=== PATIENT | female | born 1960 | race Caucasian/White ===

== ENCOUNTER 2016-05-25 11:51 | Outpatient (CLI) | payer OTHER | END 2016-05-25 11:52 | disposition home or self-care (01) | DX: E03.9 Hypothyroidism, unspecified (principal) ==

== ENCOUNTER 2016-06-01 14:46 | Outpatient (CLI) | payer OTHER | END 2016-06-01 14:47 | disposition home or self-care (01) | DX: Z12.31 Encounter for screening mammogram for malignant neoplasm of breast (principal) ==

== ENCOUNTER 2017-01-05 13:05 | Emergency (ER) | payer OTHER ==
[2017-01-05 13:13] VITALS: BP 170/122
--- NOTE | 2017-01-05 13:42 | ED Physician Documentation ---
PD HPI SKIN - Stated complaint Stated Complaint: SUN BURN - Chief complaint Chief Complaint: Wound - History obtained from History obtained from: Patient - History of Present Illness Timing - onset: Other (She has a painful peeling sunburn mostly on her front side where she does not usually get sun exposure and it is not healing well.) Review of Systems Constitutional: reports: Reviewed and negative Nose: reports: Reviewed and negative Cardiac: reports: Reviewed and negative PD PAST MEDICAL HISTORY - Past Medical History Respiratory: Asthma Neuro: Headache/migraine, Other Musculoskeletal: Osteoarthritis, Fibromyalgia, Rheumatoid arthritis, Chronic back pain - Past Surgical History Ortho: Rotator cuff repair /MOLDER INFLATED BALL: Hysterectomy - Present Medications Home Medications: Ambulatory Orders Medication Instructions Recorded Confirmed Adalimumab [Humira] 10 mg PO Q14D 11/22/15 11/22/15 Cephalexin [Keflex] 500 mg PO QID #30 capsule 01/05/17 - Allergies Allergies/Adverse Reactions: Allergies Allergy/AdvReac Type Severity Reaction Status Date / Time prednisone Allergy Itching Verified 01/05/17 13:13 - Social History Does the pt smoke?: No Smoking Status: Never smoker Does the pt drink ETOH?: No Does the pt have substance abuse?: No PD ED PE NORMAL - Vitals Vital signs reviewed: Yes - General General: Alert and oriented X 3, No acute distress - Derm Derm: Other (noe Rabago RN. She has widespread sunburn on the anterior part of her thighs, anterior abdominal wall and upper breasts. The abdominal wall and breasts are weeping with some cellulitis especially of the abdominal wall.) - Neuro Neuro: Alert and oriented X 3, Normal speech - Psych Psych: Normal mood, Normal affect Results - Vitals Vitals: Vital Signs - 24 hr 01/05/17 13:09 Temperature 36.3 C L Heart Rate 69 Respiratory 16 Rate Blood Pressure 170/122 H O2 Saturation 98 Oxygen O2 Source Room air PD MEDICAL DECISION MAKING - ED course ED course: Looks like she has superinfected sunburn, however she has been using Neosporin religiously, so that may be causing a dermatitis as well. She was advised to switch to Vaseline and we will start her on some antibiotics. Departure - Departure Disposition: 01 Home, Self Care Clinical Impression: Sunburn of second degree Condition: Good Record reviewed to determine appropriate education?: Yes Instructions: ED Burn Wound Check FU Infec Prescriptions: Cephalexin [Keflex] 500 mg PO QID #30 capsule Comments: As discussed, switch From Neosporin to Vaseline or other greasy agent such as bacitracin ointment. Your blood pressure was elevated today on check into the emergency department. This does not mean that you have hypertension, it is a common phenomenon to come to the emergency department and have elevated blood pressure. I recommend that she see your primary care physician within the week to have it rechecked when you are feeling better.
== END 2017-01-05 14:06 | disposition home or self-care (01) ==
LOC: ED 13:05
DX: L55.1 Sunburn of second degree (principal); R03.0 Elevated blood-pressure reading, without diagnosis of hypertension
CPT/HCPCS: 99283

== ENCOUNTER 2017-06-27 08:00 | Outpatient (CLI) | payer OTHER ==
[2017-06-27 13:44] LABS: BASOPHILS % (AUTO) 0.4 %; EOSINOPHILS # (AUTO) 0.2 10^3/uL (0.0-0.7); EOSINOPHILS % (AUTO) 2.5 %; HGB - HEMOGLOBIN 12.9 g/dL (12.0-16.0); LYMPHOCYTES # (AUTO) 1.6 10^3/uL (1.5-3.5); LYMPHOCYTES % (AUTO) 21.8 %; MEAN CORPUSCULAR HEMOGLOBIN 26.4 pg (27.0-31.0); MEAN CORPUSCULAR HGB CONC 33.3 g/dL (32.0-36.0); MEAN CORPUSCULAR VOLUME 79.1 fL (81.0-99.0); MEAN PLATELET VOLUME 8.8 fL (7.9-10.8); MONOCYTES # (AUTO) 0.4 10^3/uL (0.0-1.0); MONOCYTES % (AUTO) 4.9 %; NEUTROPHILS # (AUTO) 5.3 10^3/uL (1.5-6.6); NEUTROPHILS % (AUTO) 70.4 %; PLT - PLATELET COUNT 198 10^3/uL (130-450); RED BLOOD COUNT 4.88 10^6/uL (4.20-5.40); RED CELL DISTRIBUTION WIDTH 16.5 % (12.0-15.0); WHITE BLOOD COUNT 7.5 x10^3/uL (4.8-10.8)
[2017-06-27 14:04] LABS: ALBUMIN 3.9 g/dL (3.2-5.5); ALBUMIN/GLOBULIN RATIO 1.1 (1.0-2.2); ALKALINE PHOSPHATASE 72 IU/L (42-121); ALT ALANINE AMINOTRANSFERASE 18 IU/L (10-60); AST ASPARTATE AMINOTRANSFERASE 18 IU/L (10-42); BILIRUBIN,TOTAL 0.6 mg/dL (0.2-1.0); BUN - BLOOD UREA NITROGEN 22 mg/dL (6-20); CALCIUM 9.2 mg/dL (8.5-10.3); CARBON DIOXIDE - CO2 28 mmol/L (21-32); CHLORIDE 98 mmol/L (101-111); CHOLESTEROL 166 mg/dL; CREATININE 0.7 mg/dL (0.4-1.0); GFR - MDRD 86 (>89); GLUCOSE 93 mg/dL (70-100); HDL CHOLESTEROL 56 mg/dL; LDL CHOLESTEROL,CALCULATED 93 mg/dL; LDL/HDL RATIO 1.7 (<4.4); SODIUM 138 mmol/L (135-145); TOTAL PROTEIN 7.6 g/dL (6.7-8.2); VLDL CHOLESTEROL 17 mg/dL
[2017-06-27 15:08] LABS: THYROID STIMULATING HORMONE 12.06 uIU/mL (0.34-5.60)
[2017-06-27 15:50] LABS: FREE T4 (FREE THYROXINE) 0.82 ng/dL (0.58-1.64)
== END 2017-06-27 08:01 | disposition home or self-care (01) ==
LOC: LAB.WCP 08:00
PROVIDERS: ATTEND Physician Assistant Medical
DX: Z00.00 Encounter for general adult medical examination without abnormal findings (principal)
CPT/HCPCS: 36415; 80053; 80061; 83721; 84439; 84443; 85025

== ENCOUNTER 2017-12-11 11:18 | Outpatient (CLI) | payer OTHER, MEDICARE ==
[2017-12-11] MEDS ORDERED: IOPAMIDOL-300 100 ML VIAL ONE (11:34)
[2017-12-11] MEDS ORDERED: IOPAMIDOL-300 50 ML VIAL ONE (11:34)
[2017-12-11 11:57] LABS: BASOPHILS % (AUTO) 0.4 %; EOSINOPHILS # (AUTO) 0.1 10^3/uL (0.0-0.7); EOSINOPHILS % (AUTO) 1.3 %; LYMPHOCYTES # (AUTO) 0.9 10^3/uL (1.5-3.5); LYMPHOCYTES % (AUTO) 9.4 %; MEAN CORPUSCULAR HEMOGLOBIN 26.5 pg (27.0-31.0); MEAN CORPUSCULAR HGB CONC 33.3 g/dL (32.0-36.0); MEAN CORPUSCULAR VOLUME 79.6 fL (81.0-99.0); MEAN PLATELET VOLUME 7.1 fL (7.9-10.8); MONOCYTES # (AUTO) 0.6 10^3/uL (0.0-1.0); MONOCYTES % (AUTO) 6.1 %; NEUTROPHILS # (AUTO) 7.5 10^3/uL (1.5-6.6); NEUTROPHILS % (AUTO) 82.8 %; PLT - PLATELET COUNT 253 10^3/uL (130-450); RED BLOOD COUNT 4.52 10^6/uL (4.20-5.40); RED CELL DISTRIBUTION WIDTH 15.6 % (12.0-15.0); WHITE BLOOD COUNT 9.1 x10^3/uL (4.8-10.8)
[2017-12-11 12:10] LABS: ALBUMIN 3.8 g/dL (3.2-5.5); BILIRUBIN,TOTAL 0.8 mg/dL (0.2-1.0); CALCIUM 8.7 mg/dL (8.5-10.3); CREATININE 0.7 mg/dL (0.4-1.0); TOTAL PROTEIN 7.6 g/dL (6.7-8.2)
--- NOTE | 2017-12-11 13:42 | CT Report ---
Procedure Date: 12/11/2017 Accession Number: [id number] / [id number] Procedure: CT - Abdomen/Pelvis W/ CPT Code: FULL RESULT: EXAM: CT ABDOMEN AND PELVIS EXAM DATE: 12/11/2017 12:51 PM. CLINICAL HISTORY: Abdominal pain, left lower quadrant. COMPARISONS: None. TECHNIQUE: Routine helical CT imaging was performed through the abdomen and pelvis. IV contrast: ISOVUE 300 100ml. Enteric contrast: No. Reconstructions: Coronal and sagittal. In accordance with CT protocol optimization, one or more of the following dose reduction techniques were utilized for this exam: automated exposure control, adjustment of mA and/or KV based on patient size, or use of iterative reconstructive technique. FINDINGS: Lung Bases: Unremarkable. Liver: Normal. No masses. Gallbladder/Bile Ducts: Unremarkable. Spleen: Normal. Pancreas: Normal. Adrenal Glands: Normal. Kidneys: Normal. No masses or hydronephrosis. Peritoneal Cavity/Bowel: There is sigmoid colonic diverticulosis with wall thickening and focal fat stranding surrounding a diverticulum which has led to contained perforation and early abscess formation. The phlegmonous area is immediately adjacent and intimately associated with the dome of the bladder and measures 4.3 x 2.9 cm without a well-developed enhancing rim. Likely not drainable as yet. There is no free fluid or free air. There is no bowel obstruction. The appendix is well visualized and normal. Pelvic Organs: Normal. The bladder and visualized pelvic organs are within normal limits. Vasculature: No aneurysms or other significant abnormality. Bones: No significant abnormality. Other: Surgical clips in the region of the left inguinal canal. IMPRESSION: Sigmoid colon diverticulitis with early abscess formation as described. The abscess is likely as yet immature and notably at risk of fistulization to the bladder. RADIA
[2017-12-11] MEDS ORDERED: IOPAMIDOL-300 100 ML VIAL IVP ONE (15:01)
[2017-12-11] MEDS ORDERED: IOPAMIDOL-300 50 ML VIAL PO ONE (15:01)
== END 2017-12-11 11:19 | disposition home or self-care (01) ==
LOC: DI 11:18
PROVIDERS: ATTEND Physician Assistant Medical
DX: R10.32 Left lower quadrant pain (principal)
CPT/HCPCS: 36415; 74177; 80053; 83690; 85025; Q9967

== ENCOUNTER 2017-12-17 10:49 | Inpatient (IN) | payer OTHER, MEDICARE ==
--- NOTE | 2017-12-17 11:13 | ED Physician Documentation ---
PD HPI ABD PAIN - Stated complaint Stated Complaint: ABD PX - Chief complaint Chief Complaint: Abd Pain - History obtained from History obtained from: Patient - History of Present Illness Timing - onset: How many weeks ago (1-2 weeks of left lower abd pain, seen in office last week and had outpt CT scan showing diverticulitisWith localized fluid collection but had not coalesced into a true abscess. She was treated outpatient with Bactrim and Flagyl and states the pain has not improved during that time. She has had diarrheal type bowel movements with some mucus to it. She denies any GI bleeding. She was seen back in the office today with still localized tenderness similar to the prior exam. She is referred to the ER for further testing and evaluation. Presumption would be needing IV antibiotics and repeat scan.) Timing - duration: Weeks (1-2) Timing - details: Gradual onset, Still present, Waxing and waning Quality: Cramping, Aching, Pain Location: LLQ Radiation: Lower back Improved by: No: Eating Worsened by: Moving. No: Eating, Breathing Associated symptoms: No: Fever, Nausea, Vomiting, Hematochezia, Near syncope / syncope Similar symptoms before: Diagnosis (diverticulitis) Recently seen: Clinic Review of Systems Constitutional: denies: Fever, Chills Nose: denies: Rhinorrhea / runny nose, Congestion Throat: denies: Sore throat Cardiac: denies: Chest pain / pressure, Palpitations Respiratory: denies: Cough GI: reports: Nausea, Diarrhea. denies: Abdominal Pain, Vomiting, Constipation, Bloody / black stool : denies: Dysuria, Frequency Skin: denies: Rash, Lesions Musculoskeletal: reports: Back pain, Extremity pain (chronic due to RA). denies : Neck pain Neurologic: denies: Focal weakness, Numbness, Near syncope PD PAST MEDICAL HISTORY - Past Medical History Respiratory: Asthma Musculoskeletal: Osteoarthritis, Fibromyalgia, Rheumatoid arthritis, Chronic back pain - Past Surgical History Ortho: Rotator cuff repair /[employer]: Hysterectomy - Present Medications Home Medications: Ambulatory Orders Medication Instructions Recorded Confirmed Albuterol Sulfate [Proventil Hfa 1 - 2 puffs INH Q4H PRN 12/17/17 12/17/17 Inhaler] Beclomethasone Dipropionate [Qvar 1 puffs IH BID 12/17/17 12/17/17 Redihaler] Fluticasone [Flonase] 2 sprays NETO DAILY 12/17/17 12/17/17 Leflunomide 20 mg PO DAILY 12/17/17 12/17/17 Levothyroxine Sodium 125 mcg PO DAILY 12/17/17 12/17/17 Losartan/Hydrochlorothiazide 1 tab PO DAILY 12/17/17 12/17/17 [Losartan-Hctz 100-25 mg Tab] Naproxen 500 mg PO BID PRN 12/17/17 12/17/17 - Allergies Allergies/Adverse Reactions: Allergies Allergy/AdvReac Type Severity Reaction Status Date / Time No Known Drug Allergies Allergy Verified 12/17/17 11:08 - Social History Does the pt smoke?: No Smoking Status: Never smoker Does the pt drink ETOH?: No Does the pt have substance abuse?: No PD ED PE NORMAL - Vitals Vital signs reviewed: Yes - General General: Alert and oriented X 3, No acute distress, Well developed/nourished - HEENT HEENT: Pharynx benign - Neck Neck: Supple, no meningeal sign, No adenopathy - Cardiac Cardiac: RRR, No murmur - Respiratory Respiratory: Clear bilaterally - Abdomen Abdomen: Normal bowel sounds, Soft, Non distended, No organomegaly, Other ( tender LLQ with local guarding but no percussion tenderness. ) - Back Back: No CVA TTP - Derm Derm: Normal color, Warm and dry - Extremities Extremities: No deformity, No tenderness to palpate, Normal ROM s pain - Neuro Neuro: Alert and oriented X 3, No motor deficit, Normal speech Results - Vitals Vitals: Vital Signs - 24 hr 12/17/17 12/17/17 11:03 13:15 Temperature 36 C L Heart Rate 76 69 Respiratory 20 18 Rate Blood Pressure 120/74 117/72 O2 Saturation 96 100 Oxygen O2 Source Room air - Labs Labs: Laboratory Tests 12/17/17 12/17/17 12/17/17 11:23 11:23 11:38 WBC 5.8 RBC 4.56 Hgb 12.0 Hct 35.6 L MCV 78.1 L MCH 26.4 L MCHC 33.8 RDW 15.9 H Plt Count 261 MPV 7.2 L Neut # (Auto) 4.2 Lymph # (Auto) 0.7 L [place] # (Auto) 0.6 Eos # (Auto) 0.2 Baso # (Auto) 0.0 Absolute Nucleated RBC 0.00 Nucleated RBC % 0.0 Sodium 135 Potassium 4.1 Chloride 101 Carbon Dioxide 25 Anion Gap 9.0 BUN 17 Creatinine 0.9 Estimated GFR (MDRD) 65 L Glucose 97 Calcium 8.8 Total Bilirubin 0.7 AST 33 ALT 29 Alkaline Phosphatase 76 Total Protein 7.7 Albumin 3.8 Globulin 3.9 Albumin/Globulin Ratio 1.0 Lipase 32 Urine Color YELLOW Urine Clarity CLEAR Urine pH 6.0 Ur Specific [place] <=1.005 Urine Protein NEGATIVE Urine Glucose (UA) NEGATIVE Urine Ketones NEGATIVE Urine Occult Blood NEGATIVE Urine Nitrite NEGATIVE Urine Bilirubin NEGATIVE Urine Urobilinogen 0.2 (NORMAL) Ur Leukocyte Esterase NEGATIVE Ur Microscopic Review NOT INDICATED Urine Culture Comments NOT INDICATED - Rads (name of study) abd CT Radiology: Prelim report reviewed (Sigmoid diverticular inflammation with a local fluid collection 5 x 4 x 3 cm without any defined margins. 2 possible small air bubbles noted in the area. No generalized free fluid.), EMP read contemporaneously PD MEDICAL DECISION MAKING - ED course Complexity details: reviewed results, considered differential (Ongoing diverticulitis with localized fluid collection but not defined abscess with failed outpatient treatment will need to come into the hospital for IV antibiotics and further evaluation.), d/w patient - Sepsis Event Vital Signs: Vital Signs - 24 hr 12/17/17 12/17/17 11:03 13:15 Temperature 36 C L Heart Rate 76 69 Respiratory 20 18 Rate Blood Pressure 120/74 117/72 O2 Saturation 96 100 Oxygen O2 Source Room air Departure - Departure Disposition: [facility] DC/Xfer Clinical Impression: Sigmoid diverticulitis, Failure of outpatient treatment Condition: Stable Record reviewed to determine appropriate education?: Yes
[2017-12-17 11:28] LABS: BASOPHILS % (AUTO) 0.7 %; EOSINOPHILS # (AUTO) 0.2 10^3/uL (0.0-0.7); LYMPHOCYTES # (AUTO) 0.7 10^3/uL (1.5-3.5); LYMPHOCYTES % (AUTO) 12.4 %; MEAN CORPUSCULAR HEMOGLOBIN 26.4 pg (27.0-31.0); MEAN CORPUSCULAR HGB CONC 33.8 g/dL (32.0-36.0); MEAN CORPUSCULAR VOLUME 78.1 fL (81.0-99.0); MEAN PLATELET VOLUME 7.2 fL (7.9-10.8); MONOCYTES # (AUTO) 0.6 10^3/uL (0.0-1.0); MONOCYTES % (AUTO) 10.9 %; NEUTROPHILS # (AUTO) 4.2 10^3/uL (1.5-6.6); PLT - PLATELET COUNT 261 10^3/uL (130-450); RED BLOOD COUNT 4.56 10^6/uL (4.20-5.40); RED CELL DISTRIBUTION WIDTH 15.9 % (12.0-15.0); WHITE BLOOD COUNT 5.8 x10^3/uL (4.8-10.8)
[2017-12-17] MEDS ORDERED: SODIUM CHLORIDE 0.9% 1,000 ML IV ONE (11:29)
[2017-12-17] MEDS ORDERED: cefTRIAXone 1 GM in SODIUM CHLORIDE 0.9% MINIBAG 100 ML IV STA (11:29)
[2017-12-17] MEDS ORDERED: metroNIDAZOLE 500 MG/100 ML 500 MG/100 ML BAG IV ONE (11:30)
[2017-12-17 11:41] LABS: ALBUMIN 3.8 g/dL (3.2-5.5); BILIRUBIN,TOTAL 0.7 mg/dL (0.2-1.0); CALCIUM 8.8 mg/dL (8.5-10.3); CREATININE 0.9 mg/dL (0.4-1.0); TOTAL PROTEIN 7.7 g/dL (6.7-8.2)
[2017-12-17] MEDS ORDERED: IOPAMIDOL-300 100 ML VIAL ONE (11:45)
[2017-12-17 12:24] LABS: BILIRUBIN,URINE NEGATIVE (NEGATIVE); GLUCOSE, URINE (UA) NEGATIVE (NEGATIVE); KETONES,URINE (UA) NEGATIVE (NEGATIVE); LEUKOCYTE ESTERASE, URINE NEGATIVE (NEGATIVE); NITRITE,URINE NEGATIVE (NEGATIVE); OCCULT BLOOD,URINE NEGATIVE (NEGATIVE); PROTEIN,URINE NEGATIVE (NEGATIVE); UROBILINOGEN,URINE 0.2 (NORMAL) E.U./dL (NORMAL)
[2017-12-17 12:25] LABS: CLARITY,URINE CLEAR (CLEAR)
[2017-12-17] MEDS ORDERED: IOPAMIDOL-300 100 ML VIAL IVP ONE (12:32)
--- NOTE | 2017-12-17 13:04 | CT Report ---
Procedure Date: 12/17/2017 Accession Number: [id number] / [id number] Procedure: CT - Abdomen/Pelvis W/ CPT Code: FULL RESULT: EXAM: CT ABDOMEN AND PELVIS EXAM DATE: 12/17/2017 12:20 PM. CLINICAL HISTORY: 12/11 CT diverticulitis; not improved with oral abx. Persistent pain COMPARISONS: 12/11/2017. TECHNIQUE: Routine helical CT imaging was performed through the abdomen and pelvis. IV contrast: ISOVUE 300 100mL. Enteric contrast: No. Reconstructions: Coronal and sagittal. In accordance with CT protocol optimization, one or more of the following dose reduction techniques were utilized for this exam: automated exposure control, adjustment of mA and/or KV based on patient size, or use of iterative reconstructive technique. FINDINGS: Lung Bases: Unremarkable. Liver, gallbladder/Bile Ducts, spleen, pancreas, adrenal Glands, Kidneys: Unchanged since prior Peritoneal Cavity/Bowel: There is a persistent localized collection which has not changed appreciably in appearance. Current measurements 5 cm vertical (series 5 image 27) by 4.7 x 3.7 cm axial (series 3 image 80). One or 2 central air bubbles are present without a well-defined enhancing rim. The collection appears to be intimately related to the dome of the bladder as well as adjacent small bowel and sigmoid colon. Sigmoid diverticulosis is again apparent. No free fluid. Pelvic Organs: No air is seen within the bladder. Uterus not identified. Vasculature: No aneurysms or other significant abnormality. Bones: No significant abnormality. Other: Surgical clips adjacent to the left symphysis. IMPRESSION: Similar appearance of sigmoid diverticulosis/diverticulitis complicated by a contained perforation when compared with 12/11/2017. No significant new findings. RADIA
[2017-12-17] MEDS ORDERED: MORPHINE 2 MG/ML SYRINGE IVP PRN (13:54)
[2017-12-17] MEDS ORDERED: oxyCODONE 5 MG TABLET PO PRN ×2 (13:54)
[2017-12-17] MEDS ORDERED: PROMETHAZINE 25 MG/1 ML VIAL IM PRN (13:54)
[2017-12-17] MEDS ORDERED: PROCHLORPERAZINE 10 MG/2 ML VIAL IVP PRN (13:54)
[2017-12-17] MEDS ORDERED: ZOLPIDEM 5 MG TABLET PO PRN (13:54)
[2017-12-17] MEDS ORDERED: CIPROFLOXACIN 400 MG/200 ML 200 ML IV SCH (14:00)
[2017-12-17] MEDS ORDERED: ADALIMUMAB 10 MG PO SCH (14:00)
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
[2017-12-17] MEDS ORDERED: NAPROXEN 250 MG TABLET PO PRN (14:25)
[2017-12-17] MEDS: SODIUM CHLORIDE 0.9% 1,000 ML IV SCH (16:02)
[2017-12-17] MEDS: metroNIDAZOLE 500 MG/100 ML 500 MG/100 ML BAG IV SCH ×2 (16:02→21:58)
[2017-12-17] MEDS: ALBUTEROL NEB 2.5 MG/3 ML INH PRN (16:52)
[2017-12-17] MEDS: FORMOTEROL FUMARATE NEB 20 MCG/2 ML INH SCH ×2 (16:52→23:41)
[2017-12-17] MEDS: BUDESONIDE 0.5 MG/2 ML NEB INH SCH ×2 (16:53→23:41)
[2017-12-17] MEDS: SODIUM CHLORIDE FLUSH 0.9% 10 ML SYRINGE IVP SCH (17:07)
[2017-12-17] MEDS: cefTRIAXone 2 GM in SODIUM CHLORIDE 0.9% MINIBAG 100 ML IV SCH (18:54)
[2017-12-17] MEDS ORDERED: A & D OINTMENT 5 GM PACKET TOP PRN (21:23)
[2017-12-17] MEDS ORDERED: MIN OIL/DIMETHICON/COCONUT OIL 92 GM TUBE TOP PRN (22:04)
[2017-12-18] MEDS: SACCHAROMYCES BOULARDII 250 MG CAPSULE PO SCH ×3 (00:27→16:35)
[2017-12-18] MEDS: SODIUM CHLORIDE FLUSH 0.9% 10 ML SYRINGE IVP SCH ×3 (04:47→16:32)
[2017-12-18 05:24] LABS: BASOPHILS % (AUTO) 0.6 %; EOSINOPHILS # (AUTO) 0.1 10^3/uL (0.0-0.7); EOSINOPHILS % (AUTO) 2.1 %; LYMPHOCYTES # (AUTO) 0.6 10^3/uL (1.5-3.5); LYMPHOCYTES % (AUTO) 12.2 %; MEAN CORPUSCULAR HEMOGLOBIN 26.4 pg (27.0-31.0); MEAN CORPUSCULAR HGB CONC 33.2 g/dL (32.0-36.0); MEAN CORPUSCULAR VOLUME 79.3 fL (81.0-99.0); MEAN PLATELET VOLUME 7.3 fL (7.9-10.8); MONOCYTES # (AUTO) 0.5 10^3/uL (0.0-1.0); MONOCYTES % (AUTO) 10.3 %; NEUTROPHILS % (AUTO) 74.8 %; PLT - PLATELET COUNT 207 10^3/uL (130-450); RED BLOOD COUNT 4.18 10^6/uL (4.20-5.40); RED CELL DISTRIBUTION WIDTH 16.4 % (12.0-15.0); WHITE BLOOD COUNT 5.3 x10^3/uL (4.8-10.8)
[2017-12-18 05:36] LABS: ALBUMIN 3.2 g/dL (3.2-5.5); BILIRUBIN,TOTAL 0.6 mg/dL (0.2-1.0); CALCIUM 8.2 mg/dL (8.5-10.3); CREATININE 0.9 mg/dL (0.4-1.0); MAGNESIUM 2.1 mg/dL (1.7-2.8); PHOSPHORUS 2.8 mg/dL (2.5-4.6); TOTAL PROTEIN 6.5 g/dL (6.7-8.2)
[2017-12-18] MEDS: metroNIDAZOLE 500 MG/100 ML 500 MG/100 ML BAG IV SCH ×3 (05:51→21:26)
[2017-12-18] MEDS: SODIUM CHLORIDE 0.9% 1,000 ML IV SCH ×2 (05:51→16:35)
[2017-12-18] MEDS: POLYETHYLENE GLYCOL 3350 17 GM PACKET PO SCH (07:26)
[2017-12-18] MEDS ORDERED: LOSARTAN 50 MG TABLET PO SCH (09:00)
[2017-12-18] MEDS ORDERED: LEVOTHYROXINE 125 MCG TABLET PO SCH (09:00)
[2017-12-18] MEDS ORDERED: HYDROCHLOROTHIAZIDE PO SCH (09:00)
[2017-12-18] MEDS ORDERED: LOSARTAN PO SCH (09:00)
[2017-12-18] MEDS ORDERED: hydroCHLOROthiazide 25 MG TABLET PO SCH (09:00)
[2017-12-18] MEDS: FLUTICASONE NASAL SPRAY NAS SCH (09:22)
[2017-12-18] MEDS: cefTRIAXone 2 GM in SODIUM CHLORIDE 0.9% MINIBAG 100 ML IV SCH (09:23)
[2017-12-18] MEDS: ENOXAPARIN 40 MG/0.4 ML SYRINGE SUBQ SCH (09:23)
[2017-12-18] MEDS: FAMOTIDINE 20 MG TABLET PO SCH (09:23)
[2017-12-18] MEDS: LOSARTAN PO SCH (09:24)
[2017-12-18] MEDS: NAPROXEN 500 MG PO SCH (09:24)
[2017-12-18] MEDS: LEVOTHYROXINE 125 MCG PO SCH (09:24)
[2017-12-18] MEDS: POTASSIUM CHLORIDE 10 MEQ PO SCH (09:24)
[2017-12-18] MEDS: HCTZ PO SCH (09:24)
[2017-12-18] MEDS: BUDESONIDE 0.5 MG/2 ML NEB INH SCH ×2 (09:34→19:37)
[2017-12-18] MEDS: FORMOTEROL FUMARATE NEB 20 MCG/2 ML INH SCH ×2 (09:35→19:37)
[2017-12-18] MEDS: LOPERAMIDE 2 MG CAPSULE PO PRN ×2 (12:23→18:17)
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
--- NOTE | 2017-12-18 18:21 | CONSULTATION NOTE ---
Referring Provider Name of Referring Provider:: Dr. Rivera Consult Date: 12/18/17 Chief Complaint - Chief Complaint Chief Complaint: abd pain History of Present Illness - Admitted From Admitted From:: ER - History Obtained From Records Reviewed: yes History obtained from: pt, records Exam Limitations: none - History of Present Illness HPI Comment/Other: 57 yo female with 3 week hx of lower abd pain associated with change in bowel habits manifest by irregular thin non bloody stools, nausea but no vomiting, no fever/chills, melena, hematochezia, or prior similar sx. The pain is primarily suprapubic and constant/steady in nature, unrelieved with voiding or bms. She reports a hx of IBS with episodic diarrhea and constipation but current sx are different. She was evaluated by her PCP who obtained a CT scan which showed evidence of acute sigmoid diverticulitis with possible evolving intraabdominal abscess adjacent to the colon, and was placed on outpt therapy with Bactrim and Flagyl last week. Because of worsening pain she was seen in the ER yesterday where repeat CT showed no significant changes, including a 4-5 cm pericolonic abscess between the sigmoid colon and bladder. She was admitted for parenteral antibiotic therapy and surgical consultation. She has a FH of diverticular disease in her mother who apparentl developed a colovaginal fistula and ultimately of her disease. She has had multiple colonoscopies to evaluate her IBS sx, most recently approximately 2 yrs ago with favorable findings. W/u for celiac disease has been negative. Neg FH CRC. No recent wt changes. No chronic UGI sx. She reports that she is feeling much better today. Her CT findings were discussed with several IR departments and [facility] is willing to attempt percutaneous drainage if there is no significant improvement next week. She currently is tolerating a liquid diet well. History - Past Medical History Cardiovascular: reports: Hypertension, Other (Morbid obesity) Respiratory: reports: Asthma Neuro: reports: None Endocrine/Autoimmune: reports: HyPOthyroidism (s/p partial thyroidectomy for benign disease) GI: reports: Other (IBS) : reports: None HEENT: reports: None Psych: reports: None Musculoskeletal: reports: Osteoarthritis, Fibromyalgia, Rheumatoid arthritis, Chronic back pain Derm: reports: None MRSA Hx?: No Other Past Medical History: Morbid obesity (BMI 50) - Past Surgical History Ortho: reports: Rotator cuff repair /[employer]: reports: Hysterectomy - Family & Social History Family History: Father: , Diabetes, Type 2, OR, Sister: Cancer (NHL) Family History Comment/Other: Mother had a perforated diverticulum; neg for CRC Living arrangement: At home Living Situation: With spouse/s.o. Social History Notes: Patient lives in [place] with her . She moved [place] [address]. She is originally from [place]. She is retired. She has 4 children. She has never smoked, she does drink alcohol socially and denies any illicit drug use. - Substance History Use: Uses substance without health or social issues: Alcohol Abuse: Recurrent use of substance despite neg consequences: NONE Dependence: Experiences withdrawal or developed tolerances: NONE - POLST Patient has POLST: No POLST Status: Full Code Meds/Allgy - Home Medications Home Medications: Ambulatory Orders Medication Instructions Recorded Confirmed Albuterol Sulfate [Proventil Hfa 1 - 2 puffs INH Q4H PRN 12/17/17 12/17/17 Inhaler] Beclomethasone Dipropionate [Qvar 1 puffs IH BID 12/17/17 12/17/17 Redihaler] Fluticasone [Flonase] 2 sprays NETO DAILY 12/17/17 12/17/17 Leflunomide 20 mg PO DAILY 12/17/17 12/17/17 Levothyroxine Sodium 125 mcg PO DAILY 12/17/17 12/17/17 Losartan/Hydrochlorothiazide 1 tab PO DAILY 12/17/17 12/17/17 [Losartan-Hctz 100-25 mg Tab] Naproxen 500 mg PO BID PRN 12/17/17 12/17/17 - Allergies Allergies/Adverse Reactions: Allergies Allergy/AdvReac Type Severity Reaction Status Date / Time No Known Drug Allergies Allergy Verified 12/17/17 11:08 Review of Systems - Constitutional Constitutional: reports: Poor appetite. denies: Weight loss - Gastrointestinal Gastrointestinal: reports: Abdominal pain, Change in bowel habits, Nausea, Poor appetite. denies: Rectal bleeding, Black stools, Bloody stools, Vomiting, Reflux/heartburn - Hematologic/Lymphatic Hematologic/Lymphatic: denies: Blood clots, Bleeding tendencies - All Other Systems All Other Systems: reports: Reviewed and negative Exam - Vital Signs Reviewed Vital Signs: Yes Vital Signs: Vital Signs x48h Temp Pulse Resp BP Pulse Ox 12/18/17 15:40 36.5 C 63 16 135/83 H 96 - Physical Exam General Appearance: positive: No acute distress, Alert Eyes Bilateral: positive: Conjunctivae nml, No scleral icterus ENT: positive: ENT inspection nml, Pharynx nml, No signs of dehydration Neck: positive: No JVD. negative: Lymphadenopathy (R), Lymphadenopathy (L) Respiratory: positive: Chest non-tender, No respiratory distress, Breath sounds nml Cardiovascular: positive: Regular rate & rhythm, No murmur, No gallop Abdomen: positive: Nml bowel sounds, Tenderness (suprapubic and LLQ tenderness with guarding and localized peritoneal signs; no generalized peritoneal signs), Guarding. negative: Rebound, Mass Skin: positive: Color nml, Warm, Dry Extremities: positive: Non-tender, Nml appearance, No pedal edema. negative: Calf tenderness Neurologic/Psychiatric: positive: Oriented x3 Conclusion/Plan - Diagnosis Diagnosis: 1. Acute diverticulitis with contained perforation and localized pericolonic abscess. No evidence of generalized intraabdominal sepsis at present. 2. Morbid obesity, which complicates therapeutic options. - Plan Plan: Agree with admission, IV antibiotics directed at gram negative and anaerobic organisms, and f/u CT next week. If abscess fails to significantly resolve, then transfer for IR drainage would be advised. Should her condition deteriorate and surgery be necessary, consideration should be given to transfer to higher level of care due to supermorbid obesity and likely difficulty with perioperative management. Discussed in detail with patient and Dr. Rivera, who agree. Will follow. Thanks, - Lab Results Lab results reviewed: Yes Fish Bones: 12/18/17 05:10 12/18/17 05:10 - Diagnostic Imaging Results Diagnostic Imaging Results: positive: Final report reviewed, Read independently Diagnostic Imaging Results Comments: see HPI
[2017-12-18] MEDS: ALBUTEROL NEB 2.5 MG/3 ML INH PRN (19:37)
[2017-12-19] MEDS: ONDANSETRON 4 MG/2 ML VIAL IVP PRN (00:19)
[2017-12-19] MEDS: SODIUM CHLORIDE 0.9% 1,000 ML IV SCH ×3 (02:57→17:04)
[2017-12-19] MEDS: SODIUM CHLORIDE FLUSH 0.9% 10 ML SYRINGE IVP SCH ×4 (03:11→23:30)
[2017-12-19] MEDS: metroNIDAZOLE 500 MG/100 ML 500 MG/100 ML BAG IV SCH ×3 (05:04→22:02)
[2017-12-19 05:52] LABS: BASOPHILS % (AUTO) 0.6 %; EOSINOPHILS # (AUTO) 0.2 10^3/uL (0.0-0.7); EOSINOPHILS % (AUTO) 4.1 %; HGB - HEMOGLOBIN 11.6 g/dL (12.0-16.0); LYMPHOCYTES % (AUTO) 20.4 %; MEAN CORPUSCULAR HEMOGLOBIN 26.1 pg (27.0-31.0); MEAN CORPUSCULAR HGB CONC 32.4 g/dL (32.0-36.0); MEAN CORPUSCULAR VOLUME 80.5 fL (81.0-99.0); MEAN PLATELET VOLUME 7.4 fL (7.9-10.8); MONOCYTES # (AUTO) 0.4 10^3/uL (0.0-1.0); MONOCYTES % (AUTO) 9.5 %; NEUTROPHILS # (AUTO) 3.1 10^3/uL (1.5-6.6); NEUTROPHILS % (AUTO) 65.4 %; PLT - PLATELET COUNT 219 10^3/uL (130-450); RED BLOOD COUNT 4.45 10^6/uL (4.20-5.40); RED CELL DISTRIBUTION WIDTH 16.3 % (12.0-15.0); WHITE BLOOD COUNT 4.7 x10^3/uL (4.8-10.8)
[2017-12-19 06:03] LABS: ALBUMIN 3.2 g/dL (3.2-5.5); BILIRUBIN,TOTAL 0.7 mg/dL (0.2-1.0); CREATININE 0.8 mg/dL (0.4-1.0); PHOSPHORUS 3.2 mg/dL (2.5-4.6); TOTAL PROTEIN 6.5 g/dL (6.7-8.2)
[2017-12-19] MEDS: ACETAMINOPHEN 325 MG TABLET PO PRN (07:31)
[2017-12-19] MEDS: ALBUTEROL NEB 2.5 MG/3 ML INH PRN ×2 (07:36→19:51)
[2017-12-19] MEDS: BUDESONIDE 0.5 MG/2 ML NEB INH SCH ×2 (07:36→19:51)
[2017-12-19] MEDS: FORMOTEROL FUMARATE NEB 20 MCG/2 ML INH SCH (07:36)
[2017-12-19] MEDS: cefTRIAXone 2 GM in SODIUM CHLORIDE 0.9% MINIBAG 100 ML IV SCH (08:48)
[2017-12-19] MEDS: ENOXAPARIN 40 MG/0.4 ML SYRINGE SUBQ SCH (08:48)
[2017-12-19] MEDS: SACCHAROMYCES BOULARDII 250 MG CAPSULE PO SCH ×2 (08:49→17:04)
[2017-12-19] MEDS: FAMOTIDINE 20 MG TABLET PO SCH (08:49)
[2017-12-19] MEDS: LOSARTAN PO SCH (08:50)
[2017-12-19] MEDS: NAPROXEN 500 MG PO SCH (08:50)
[2017-12-19] MEDS: FLUTICASONE NASAL SPRAY NAS SCH (08:50)
[2017-12-19] MEDS: LEVOTHYROXINE 125 MCG PO SCH (08:50)
[2017-12-19] MEDS: POTASSIUM CHLORIDE 10 MEQ PO SCH (08:50)
[2017-12-19] MEDS: HCTZ PO SCH (08:50)
[2017-12-19] MEDS: POLYETHYLENE GLYCOL 3350 17 GM PACKET PO SCH (08:50)
[2017-12-19] MEDS: LOPERAMIDE 2 MG CAPSULE PO PRN (08:56)
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
--- NOTE | 2017-12-19 13:02 | PROVIDER PROGRESS NOTE ---
Assessment/Plan - Problem List (1) Perforation of sigmoid colon due to diverticulitis Assessment/Plan: Clinically stable with contained perforation/pericolonic abscess. Rec: continue present management. If abscess hasn't resolved over next 4 days, then transfer for IR drainage is recommended. If pt deteriorates in interim, transfer for surgical intervention recommended. - Current Meds Current Meds: Current Medications Generic Name Dose Route Start Last Admin Trade Name Freq PRN Reason Stop Dose Admin Acetaminophen 650 mg 12/17/17 13:54 12/19/17 07:31 Tylenol PO 650 mg Q4HR PRN Administration Pain 1 to 4 Albuterol 2.5 mg 12/17/17 14:25 12/19/17 07:36 INH 2.5 mg RTQ4H PRN Administration Wheezing Budesonide 0.5 mg 12/17/17 15:00 12/19/17 07:36 Pulmicort INH 0.5 mg RTBID JANINE Administration Enoxaparin Sodium 40 mg 12/18/17 09:00 12/19/17 08:48 Lovenox SUBQ 40 mg DAILY JANINE Administration Famotidine 20 mg 12/18/17 09:00 12/19/17 08:49 Pepcid PO 20 mg DAILY JANINE Administration Fluticasone Propionate 2 sprays 12/18/17 09:00 12/19/17 08:50 Flonase NETO 1 spr DAILY JANINE Administration Metronidazole 500 mg in 100 mls @ 100 mls/hr 12/17/17 14:00 12/19/17 06:04 Flagyl 500 Mg/100 Ml IV Infused Q8H JANINE Infusion Sodium Chloride 1,000 mls @ 100 mls/hr 12/17/17 14:00 12/19/17 06:28 Normal Saline 0.9% IV 100 mls/hr .Q10H JANINE Infusion Ceftriaxone Sodium 2 gm/ 100 mls @ 200 mls/hr 12/17/17 17:00 12/19/17 11:59 Sodium Chloride IV Infused DAILY JANINE Infusion Loperamide HCl 2 mg 12/18/17 12:02 12/19/17 08:56 Imodium PO 2 mg QID PRN Administration Diarrhea Morphine Sulfate 2 mg 12/17/17 13:54 12/19/17 00:19 Morphine IVP 2 mg Q2H PRN Administration Pain 8 to 10 Ondansetron HCl 4 mg 12/17/17 13:54 12/19/17 00:19 Zofran Inj IVP 4 mg Q6HR PRN Administration Nausea / Vomiting Leflunomide 20 Mg 20 each 12/18/17 09:00 12/19/17 08:50 PO 20 each DAILY JANINE Administration Losartan/Hctz 100/25 1 each 12/18/17 09:00 12/19/17 08:50 ([place] Yellow Pill PO 1 each ) DAILY JANINE Administration Naproxen 500mg ( 1 each 12/18/17 09:00 12/19/17 08:50 [place] Pill) PO 1 each DAILY JANINE Administration Levothyroxine 125mcg 1 each 12/18/17 09:00 12/19/17 08:50 ([place] PO 1 each Pill) DAILY JANINE Administration Potassium Chloride 1 each 12/18/17 09:00 12/19/17 08:50 10 Meq (Large Round PO 1 each [place] Pill) DAILY JANINE Administration Polyethylene Glycol 17 gm 12/18/17 09:00 12/19/17 08:50 Miralax PO Not Given DAILY JANINE Prochlorperazine Edisylate 10 mg 12/17/17 13:54 12/17/17 21:59 Compazine Inj IVP 10 mg Q6HR PRN Administration Nausea / Vomiting Saccharomyces Boulardii 250 mg 12/17/17 23:00 12/19/17 08:49 Florastor PO 250 mg BIDWM JANINE Administration Sodium Chloride 10 ml 12/17/17 17:00 12/19/17 08:50 Normal Saline Flush 0.9% IVP Not Given 0100,0900,1700 [facility] Vitamin A/Vitamin D 1 applic 12/17/17 21:23 12/17/17 22:03 Vitamin A & D Ointment TOP 1 applic PRN PRN Administration Skin Care - Lab Result Lab results reviewed: Yes Fish Bone Diagrams: 12/19/17 05:40 12/19/17 05:40 - Additional Planning Condition/Complexity: Stable Plan Discussed with:: Patient Time Spent: 15-30 minutes Subjective - Subjective Patient Reports: Abdominal Pain (pain worsened last night, but back to baseline today; no N/V, fever, chills; loose stools yesterday but none x 24 hours per pt ; tolerating liquid diet well.) Objective Vital Signs: Vital Signs - 24 hr 12/18/17 12/18/17 12/19/17 15:40 19:37 00:00 Temperature 36.5 C 36.3 C L Heart Rate 66 Heart Rate [ 66 Brachial] Heart Rate [ 63 Monitoring electrodes] Respiratory 16 18 16 Rate Blood Pressure 112/55 L [Left Brachial artery] Blood Pressure 135/83 H [Left Radial artery] O2 Saturation 96 93 12/19/17 12/19/17 07:38 07:39 Temperature 36.3 C L Heart Rate 64 Heart Rate [ 72 Brachial] Heart Rate [ Monitoring electrodes] Respiratory 17 16 Rate Blood Pressure 110/66 [Left Brachial artery] Blood Pressure [Left Radial artery] O2 Saturation 94 Oxygen O2 Source Room air I&O (Last 24 Hrs): Intake and Output Totals x24h 12/17/17 12/18/17 12/19/17 23:59 23:59 23:59 Intake Total 1425.413 4935.333 2216.667 Balance 5844.303 7147.333 2216.667 General: Alert, Oriented x3, Cooperative Abdomen: Normal bowel sounds, Other (persistent focal tenderness in suprapubic region and LLQ; unchanged.) Extremities: No edema, No tenderness/swelling - Results Results: Laboratory Results WBC 4.7 x10^3/uL (4.8-10.8) L 12/19/17 05:40 RBC 4.45 10^6/uL (4.20-5.40) 12/19/17 05:40 Hgb 11.6 g/dL (12.0-16.0) L 12/19/17 05:40 Hct 35.8 % (37.0-47.0) L 12/19/17 05:40 MCV 80.5 fL (81.0-99.0) L 12/19/17 05:40 MCH 26.1 pg (27.0-31.0) L 12/19/17 05:40 MCHC 32.4 g/dL (32.0-36.0) 12/19/17 05:40 RDW 16.3 % (12.0-15.0) H 12/19/17 05:40 Plt Count 219 10^3/uL (130-450) 12/19/17 05:40 MPV 7.4 fL (7.9-10.8) L 12/19/17 05:40 Neut # (Auto) 3.1 10^3/uL (1.5-6.6) 12/19/17 05:40 Lymph # (Auto) 1.0 10^3/uL (1.5-3.5) L 12/19/17 05:40 [place] # (Auto) 0.4 10^3/uL (0.0-1.0) 12/19/17 05:40 Eos # (Auto) 0.2 10^3/uL (0.0-0.7) 12/19/17 05:40 Baso # (Auto) 0.0 10^3/uL (0.0-0.1) 12/19/17 05:40 Absolute Nucleated RBC 0.00 x10^3/uL 12/19/17 05:40 Nucleated RBC % 0.0 /100WBC 12/19/17 05:40 Sodium 138 mmol/L (135-145) 12/19/17 05:40 Potassium 4.5 mmol/L (3.5-5.0) 12/19/17 05:40 Chloride 106 mmol/L (101-111) 12/19/17 05:40 Carbon Dioxide 25 mmol/L (21-32) 12/19/17 05:40 Anion Gap 7.0 (6-13) 12/19/17 05:40 BUN 10 mg/dL (6-20) 12/19/17 05:40 Creatinine 0.8 mg/dL (0.4-1.0) 12/19/17 05:40 Estimated GFR (MDRD) 74 (>89) L 12/19/17 05:40 Glucose 108 mg/dL (70-100) H 12/19/17 05:40 Lactic Acid 0.9 mmol/L (0.5-2.2) 12/19/17 05:40 Calcium 8.0 mg/dL (8.5-10.3) L 12/19/17 05:40 Phosphorus 3.2 mg/dL (2.5-4.6) 12/19/17 05:40 Magnesium 2.0 mg/dL (1.7-2.8) 12/19/17 05:40 Total Bilirubin 0.7 mg/dL (0.2-1.0) 12/19/17 05:40 AST 35 IU/L (10-42) 12/19/17 05:40 ALT 33 IU/L (10-60) 12/19/17 05:40 Alkaline Phosphatase 62 IU/L (42-121) 12/19/17 05:40 Total Protein 6.5 g/dL (6.7-8.2) L 12/19/17 05:40 Albumin 3.2 g/dL (3.2-5.5) 12/19/17 05:40 Globulin 3.3 g/dL (2.1-4.2) 12/19/17 05:40 Albumin/Globulin Ratio 1.0 (1.0-2.2) 12/19/17 05:40 Lipase 32 U/L (22-51) 12/17/17 11:23 TSH 2.53 uIU/mL (0.34-5.60) 12/18/17 05:10 Urine Color YELLOW 12/17/17 11:38 Urine Clarity CLEAR (CLEAR) 12/17/17 11:38 Urine pH 6.0 PH (5.0-7.5) 12/17/17 11:38 Ur Specific Harrison <=1.005 (1.002-1.030) 12/17/17 11:38 Urine Protein NEGATIVE mg/dL (NEGATIVE) 12/17/17 11:38 Urine Glucose (UA) NEGATIVE mg/dL (NEGATIVE) 12/17/17 11:38 Urine Ketones NEGATIVE mg/dL (NEGATIVE) 12/17/17 11:38 Urine Occult Blood NEGATIVE (NEGATIVE) 12/17/17 11:38 Urine Nitrite NEGATIVE (NEGATIVE) 12/17/17 11:38 Urine Bilirubin NEGATIVE (NEGATIVE) 12/17/17 11:38 Urine Urobilinogen 0.2 (NORMAL) E.U./dL (NORMAL) 12/17/17 11:38 Ur Leukocyte Esterase NEGATIVE (NEGATIVE) 12/17/17 11:38 Ur Microscopic Review NOT INDICATED 12/17/17 11:38 Urine Culture Comments NOT INDICATED 12/17/17 11:38 ABX Reporting Has patient been on IV antibiotics over the past 48 hours?: Yes
[2017-12-20] MEDS: SODIUM CHLORIDE 0.9% 1,000 ML IV SCH ×3 (03:51→17:04)
[2017-12-20] MEDS: ACETAMINOPHEN 325 MG TABLET PO PRN ×2 (04:00→17:03)
[2017-12-20] MEDS: metroNIDAZOLE 500 MG/100 ML 500 MG/100 ML BAG IV SCH ×3 (06:20→22:30)
[2017-12-20 06:52] LABS: BASOPHILS % (AUTO) 0.5 %; EOSINOPHILS # (AUTO) 0.2 10^3/uL (0.0-0.7); EOSINOPHILS % (AUTO) 4.1 %; HGB - HEMOGLOBIN 10.6 g/dL (12.0-16.0); LYMPHOCYTES # (AUTO) 0.9 10^3/uL (1.5-3.5); LYMPHOCYTES % (AUTO) 18.2 %; MEAN CORPUSCULAR HEMOGLOBIN 26.6 pg (27.0-31.0); MEAN CORPUSCULAR HGB CONC 33.4 g/dL (32.0-36.0); MEAN CORPUSCULAR VOLUME 79.7 fL (81.0-99.0); MEAN PLATELET VOLUME 7.2 fL (7.9-10.8); MONOCYTES # (AUTO) 0.5 10^3/uL (0.0-1.0); MONOCYTES % (AUTO) 9.3 %; NEUTROPHILS # (AUTO) 3.3 10^3/uL (1.5-6.6); NEUTROPHILS % (AUTO) 67.9 %; PLT - PLATELET COUNT 206 10^3/uL (130-450); RED BLOOD COUNT 3.97 10^6/uL (4.20-5.40); RED CELL DISTRIBUTION WIDTH 16.3 % (12.0-15.0); WHITE BLOOD COUNT 4.9 x10^3/uL (4.8-10.8)
[2017-12-20 07:03] LABS: BILIRUBIN,TOTAL 0.7 mg/dL (0.2-1.0); CALCIUM 7.8 mg/dL (8.5-10.3); CREATININE 0.8 mg/dL (0.4-1.0); MAGNESIUM 1.8 mg/dL (1.7-2.8); PHOSPHORUS 2.9 mg/dL (2.5-4.6); TOTAL PROTEIN 6.1 g/dL (6.7-8.2)
[2017-12-20 07:40] LABS: % IRON SATURATION 23 % (20-50); IRON 51 ug/dL (28-170); TOTAL IRON BINDING CAPACITY 220 ug/dL (250-450); TRANSFERRIN 157 mg/dL (192-382)
[2017-12-20] MEDS: cefTRIAXone 2 GM in SODIUM CHLORIDE 0.9% MINIBAG 100 ML IV SCH (07:48)
[2017-12-20] MEDS: ENOXAPARIN 40 MG/0.4 ML SYRINGE SUBQ SCH (07:51)
[2017-12-20] MEDS: FAMOTIDINE 20 MG TABLET PO SCH (07:51)
[2017-12-20] MEDS: SACCHAROMYCES BOULARDII 250 MG CAPSULE PO SCH ×2 (07:51→17:03)
[2017-12-20 07:54] LABS: FOLATE 8.03 ng/mL (5.90 - >24.8)
[2017-12-20] MEDS: NAPROXEN 500 MG PO SCH (07:58)
[2017-12-20] MEDS: HCTZ PO SCH (07:58)
[2017-12-20] MEDS: LEVOTHYROXINE 125 MCG PO SCH (07:58)
[2017-12-20] MEDS: LOSARTAN PO SCH (07:58)
[2017-12-20] MEDS: FLUTICASONE NASAL SPRAY NAS SCH (07:59)
[2017-12-20] MEDS: POTASSIUM CHLORIDE 10 MEQ PO SCH (07:59)
[2017-12-20] MEDS: POLYETHYLENE GLYCOL 3350 17 GM PACKET PO SCH (07:59)
[2017-12-20] MEDS: BUDESONIDE 0.5 MG/2 ML NEB INH SCH ×2 (09:15→20:26)
[2017-12-20] MEDS: ALBUTEROL NEB 2.5 MG/3 ML INH PRN (09:15)
[2017-12-20] MEDS: SODIUM CHLORIDE FLUSH 0.9% 10 ML SYRINGE IVP SCH ×2 (14:42→17:03)
[2017-12-20] MEDS: LOPERAMIDE 2 MG CAPSULE PO PRN (17:03)
[2017-12-20] MEDS: ONDANSETRON 4 MG/2 ML VIAL IVP PRN (17:03)
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
[2017-12-21] MEDS: SODIUM CHLORIDE FLUSH 0.9% 10 ML SYRINGE IVP SCH ×3 (03:36→16:03)
[2017-12-21 05:54] LABS: BASOPHILS % (AUTO) 0.7 %; EOSINOPHILS # (AUTO) 0.2 10^3/uL (0.0-0.7); EOSINOPHILS % (AUTO) 3.7 %; HGB - HEMOGLOBIN 11.1 g/dL (12.0-16.0); LYMPHOCYTES # (AUTO) 0.9 10^3/uL (1.5-3.5); LYMPHOCYTES % (AUTO) 18.8 %; MEAN CORPUSCULAR HEMOGLOBIN 26.2 pg (27.0-31.0); MEAN CORPUSCULAR HGB CONC 32.9 g/dL (32.0-36.0); MEAN CORPUSCULAR VOLUME 79.6 fL (81.0-99.0); MEAN PLATELET VOLUME 7.4 fL (7.9-10.8); MONOCYTES # (AUTO) 0.4 10^3/uL (0.0-1.0); MONOCYTES % (AUTO) 8.1 %; NEUTROPHILS # (AUTO) 3.4 10^3/uL (1.5-6.6); NEUTROPHILS % (AUTO) 68.7 %; PLT - PLATELET COUNT 218 10^3/uL (130-450); RED BLOOD COUNT 4.26 10^6/uL (4.20-5.40); RED CELL DISTRIBUTION WIDTH 16.4 % (12.0-15.0)
[2017-12-21 06:05] LABS: ALBUMIN 3.1 g/dL (3.2-5.5); ALBUMIN/GLOBULIN RATIO 0.9 (1.0-2.2); BILIRUBIN,TOTAL 0.7 mg/dL (0.2-1.0); CALCIUM 8.3 mg/dL (8.5-10.3); CREATININE 0.7 mg/dL (0.4-1.0); MAGNESIUM 1.9 mg/dL (1.7-2.8); PHOSPHORUS 2.9 mg/dL (2.5-4.6); TOTAL PROTEIN 6.5 g/dL (6.7-8.2)
[2017-12-21] MEDS: metroNIDAZOLE 500 MG/100 ML 500 MG/100 ML BAG IV SCH ×3 (06:46→21:45)
[2017-12-21] MEDS: BUDESONIDE 0.5 MG/2 ML NEB INH SCH ×2 (07:12→19:31)
[2017-12-21] MEDS: ALBUTEROL NEB 2.5 MG/3 ML INH PRN (07:12)
[2017-12-21] MEDS: FAMOTIDINE 20 MG TABLET PO SCH (08:22)
[2017-12-21] MEDS: SACCHAROMYCES BOULARDII 250 MG CAPSULE PO SCH ×2 (08:22→16:03)
[2017-12-21] MEDS: cefTRIAXone 2 GM in SODIUM CHLORIDE 0.9% MINIBAG 100 ML IV SCH (08:23)
[2017-12-21] MEDS: ENOXAPARIN 40 MG/0.4 ML SYRINGE SUBQ SCH (08:24)
[2017-12-21] MEDS: NAPROXEN 500 MG PO SCH (08:26)
[2017-12-21] MEDS: POTASSIUM CHLORIDE 10 MEQ PO SCH (08:26)
[2017-12-21] MEDS: HCTZ PO SCH (08:26)
[2017-12-21] MEDS: LOSARTAN PO SCH (08:26)
[2017-12-21] MEDS: LEVOTHYROXINE 125 MCG PO SCH (08:26)
[2017-12-21] MEDS: FLUTICASONE NASAL SPRAY NAS SCH (08:26)
[2017-12-21] MEDS: POLYETHYLENE GLYCOL 3350 17 GM PACKET PO SCH (08:27)
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
[2017-12-21] MEDS: ONDANSETRON 4 MG/2 ML VIAL IVP PRN (21:45)
[2017-12-22] MEDS ORDERED: SODIUM CHLORIDE 0.9% 500 ML IV PRN (01:45)
[2017-12-22] MEDS: SODIUM CHLORIDE FLUSH 0.9% 10 ML SYRINGE IVP SCH ×3 (04:47→16:19)
[2017-12-22] MEDS: ACETAMINOPHEN 325 MG TABLET PO PRN (04:53)
[2017-12-22] MEDS: metroNIDAZOLE 500 MG/100 ML 500 MG/100 ML BAG IV SCH ×3 (05:00→21:27)
[2017-12-22 06:02] LABS: BASOPHILS % (AUTO) 0.5 %; EOSINOPHILS # (AUTO) 0.2 10^3/uL (0.0-0.7); LYMPHOCYTES # (AUTO) 0.9 10^3/uL (1.5-3.5); LYMPHOCYTES % (AUTO) 17.3 %; MEAN CORPUSCULAR HEMOGLOBIN 26.5 pg (27.0-31.0); MEAN CORPUSCULAR HGB CONC 33.2 g/dL (32.0-36.0); MEAN CORPUSCULAR VOLUME 79.7 fL (81.0-99.0); MEAN PLATELET VOLUME 7.3 fL (7.9-10.8); MONOCYTES # (AUTO) 0.5 10^3/uL (0.0-1.0); MONOCYTES % (AUTO) 9.4 %; NEUTROPHILS # (AUTO) 3.7 10^3/uL (1.5-6.6); NEUTROPHILS % (AUTO) 69.8 %; PLT - PLATELET COUNT 224 10^3/uL (130-450); RED BLOOD COUNT 4.16 10^6/uL (4.20-5.40); RED CELL DISTRIBUTION WIDTH 16.2 % (12.0-15.0); WHITE BLOOD COUNT 5.2 x10^3/uL (4.8-10.8)
[2017-12-22 06:15] LABS: ALBUMIN 3.3 g/dL (3.2-5.5); BILIRUBIN,TOTAL 0.3 mg/dL (0.2-1.0); CALCIUM 8.4 mg/dL (8.5-10.3); CREATININE 0.7 mg/dL (0.4-1.0); MAGNESIUM 1.7 mg/dL (1.7-2.8); PHOSPHORUS 3.2 mg/dL (2.5-4.6); TOTAL PROTEIN 6.5 g/dL (6.7-8.2)
[2017-12-22] MEDS: cefTRIAXone 2 GM in SODIUM CHLORIDE 0.9% MINIBAG 100 ML IV SCH (08:21)
[2017-12-22] MEDS: FAMOTIDINE 20 MG TABLET PO SCH (08:21)
[2017-12-22] MEDS: SACCHAROMYCES BOULARDII 250 MG CAPSULE PO SCH ×2 (08:21→16:18)
[2017-12-22] MEDS: ENOXAPARIN 40 MG/0.4 ML SYRINGE SUBQ SCH (08:24)
[2017-12-22] MEDS: LOSARTAN PO SCH (08:25)
[2017-12-22] MEDS: LEVOTHYROXINE 125 MCG PO SCH (08:25)
[2017-12-22] MEDS: HCTZ PO SCH (08:25)
[2017-12-22] MEDS: NAPROXEN 500 MG PO SCH (08:25)
[2017-12-22] MEDS: POTASSIUM CHLORIDE 10 MEQ PO SCH (08:26)
[2017-12-22] MEDS: FLUTICASONE NASAL SPRAY NAS SCH (08:26)
[2017-12-22] MEDS: POLYETHYLENE GLYCOL 3350 17 GM PACKET PO SCH (08:26)
[2017-12-22] MEDS: BUDESONIDE 0.5 MG/2 ML NEB INH SCH ×2 (09:00→20:42)
[2017-12-22] MEDS ORDERED: IOPAMIDOL-300 100 ML VIAL ONE (09:18)
[2017-12-22] MEDS ORDERED: IOPAMIDOL-300 50 ML VIAL ONE (09:18)
[2017-12-22] MEDS ORDERED: IOPAMIDOL-300 100 ML VIAL IVP ONE (12:25)
--- NOTE | 2017-12-22 13:28 | CT Report ---
Reason: Follow up on diverticulitis with contained perf Procedure Date: 12/22/2017 Accession Number: [id number] / [id number] Procedure: CT - Abdomen/Pelvis W/ CPT Code: FULL RESULT: EXAM: CT ABDOMEN AND PELVIS EXAM DATE: 12/22/2017 12:26 PM. CLINICAL HISTORY: Follow-up diverticulitis COMPARISONS: Abdomen pelvis CT 12/17/2017. TECHNIQUE: Routine helical CT imaging was performed through the abdomen and pelvis. IV contrast: 100 cc [id number]. Enteric contrast: Yes. Reconstructions: Coronal and sagittal. In accordance with CT protocol optimization, one or more of the following dose reduction techniques were utilized for this exam: automated exposure control, adjustment of mA and/or KV based on patient size, or use of iterative reconstructive technique. FINDINGS: Lung Bases: Unremarkable. Liver: Normal. No masses. Gallbladder/Bile Ducts: Unremarkable. Spleen: Normal. Pancreas: Normal. Adrenal Glands: Normal. Kidneys: Normal. No masses or hydronephrosis. Peritoneal Cavity/Bowel: Again seen is thickening of the sigmoid colon. There are multiple colon diverticula. The appendix is well visualized and normal. Again seen is a pericolonic fluid collection. It contains contrast suggesting communication with an adjacent diverticulum. It measures 4.7 x 3.6 cm, no significant change in size. Pelvic Organs: The bladder and visualized pelvic organs appear otherwise within normal limits. Vasculature: No aneurysms or other abnormality. Bones: No bone lesions. IMPRESSION: Diverticulitis with diverticular abscess unchanged in size. RADIA
--- NOTE | 2017-12-22 14:18 | Ultrasound Report ---
Reason: Left LE pain and swelling. R/O DVT Procedure Date: 12/22/2017 Accession Number: [id number] / [id number] Procedure: US - Duplex Ext Veins Left CPT Code: FULL RESULT: EXAM: LEFT LOWER EXTREMITY VENOUS ULTRASOUND EXAM DATE: 12/22/2017 02:05 PM. CLINICAL HISTORY: Left lower extremity pain and swelling COMPARISON: None. TECHNIQUE: Real-time sonographic vascular imaging was performed by the airline managerial supervisor through the lower extremity utilizing both color-flow and Doppler spectral analysis. Multiple sales representative publications static images were saved for review. FINDINGS: Common Femoral Vein (CFV): Normal. CFV-GSV Junction: Normal. Profunda Femoral Vein (PFV): Normal. Femoral Vein (FV) Prox: Normal. Femoral Vein (FV) Mid: Normal. Femoral Vein (FV) Dist: Normal. Popliteal Vein: Normal. Posterior Tibial Veins: Normal. Peroneal Veins: Normal. Contralateral Side CFV: Normal. IMPRESSION: No evidence for deep venous thrombosis. RADIA
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
[2017-12-22] MEDS: ONDANSETRON 4 MG/2 ML VIAL IVP PRN (16:18)
[2017-12-22] MEDS: LOPERAMIDE 2 MG CAPSULE PO PRN (16:23)
[2017-12-23] MEDS: SODIUM CHLORIDE FLUSH 0.9% 10 ML SYRINGE IVP SCH ×3 (02:49→21:45)
[2017-12-23] MEDS: metroNIDAZOLE 500 MG/100 ML 500 MG/100 ML BAG IV SCH ×3 (06:45→21:45)
[2017-12-23] MEDS: ALBUTEROL NEB 2.5 MG/3 ML INH PRN ×2 (07:38→20:54)
[2017-12-23] MEDS: BUDESONIDE 0.5 MG/2 ML NEB INH SCH ×2 (07:38→20:54)
[2017-12-23] MEDS: SACCHAROMYCES BOULARDII 250 MG CAPSULE PO SCH ×2 (08:51→16:30)
[2017-12-23] MEDS: LOSARTAN PO SCH (08:51)
[2017-12-23] MEDS: FAMOTIDINE 20 MG TABLET PO SCH (08:51)
[2017-12-23] MEDS: LEVOTHYROXINE 125 MCG PO SCH (08:51)
[2017-12-23] MEDS: POLYETHYLENE GLYCOL 3350 17 GM PACKET PO SCH (08:51)
[2017-12-23] MEDS: HCTZ PO SCH (08:51)
[2017-12-23] MEDS: NAPROXEN 500 MG PO SCH (08:51)
[2017-12-23] MEDS: cefTRIAXone 2 GM in SODIUM CHLORIDE 0.9% MINIBAG 100 ML IV SCH (08:51)
[2017-12-23] MEDS: POTASSIUM CHLORIDE 10 MEQ PO SCH (08:51)
[2017-12-23] MEDS: ENOXAPARIN 40 MG/0.4 ML SYRINGE SUBQ SCH (08:54)
[2017-12-23] MEDS: FLUTICASONE NASAL SPRAY NAS SCH (08:55)
[2017-12-23] MEDS: CHOLECALCIFEROL 1,000 UNIT TABLET PO SCH (11:41)
[2017-12-23] MEDS: PRENATAL VITAMIN TABLET PO SCH (11:41)
--- NOTE | 2017-12-23 11:45 | PROVIDER PROGRESS NOTE ---
Assessment/Plan - Problem List (1) Sigmoid diverticulitis Assessment/Plan: Sigmoid diverticulitis with abscess: Pt is currently being treated medically with IV antibiotics. She was seen by Dr. Aviles who recommended transfer for percutaneous drainge by interventional radiology and if unable to drain or worsening condition then transfer for surgical intervention due to her BMI. However, the interventional radiologist felt that the abcess was small enough to be treated medically and was in a difficult location for percutaneous drainge. She was treated with 5 days of atbx and had a repeat CT yesterday. The abscess is still present and the scan was viewed by the interventional radiologist and the surgeon at [facility]. Dr. Rivera also requested my opinion regarding the f/u CT. I reviewed the current and prior images and agree with the interventional radiologist and surgeon at [facility] that the abscess appears to have decreased somewhat since the previous scan. Since the pt is clinically improving, remains afebrile and wbc remains normal, I feel that it is safe to continue antibiotic therapy keeping in mind that resolution will be slower with this phlegmon still present. If she clinically worsens, would recommend proceeding with percutaneous drainge. - Current Meds Current Meds: Current Medications Generic Name Dose Route Start Last Admin Trade Name Freq PRN Reason Stop Dose Admin Acetaminophen 650 mg 12/17/17 13:54 12/22/17 04:53 Tylenol PO 650 mg Q4HR PRN Administration Pain 1 to 4 Albuterol 2.5 mg 12/17/17 14:25 12/23/17 07:38 INH 2.5 mg RTQ4H PRN Administration Wheezing Budesonide 0.5 mg 12/17/17 15:00 12/23/17 07:38 Pulmicort INH 0.5 mg RTBID JANINE Administration Enoxaparin Sodium 40 mg 12/18/17 09:00 12/23/17 08:54 Lovenox SUBQ 40 mg DAILY JANINE Administration Famotidine 20 mg 12/18/17 09:00 12/23/17 08:51 Pepcid PO 20 mg DAILY JANINE Administration Fluticasone Propionate 2 sprays 12/18/17 09:00 12/23/17 08:55 Flonase NETO 1 spr DAILY JANINE Administration Metronidazole 500 mg in 100 mls @ 100 mls/hr 12/17/17 14:00 12/23/17 06:45 Flagyl 500 Mg/100 Ml IV 100 mls/hr Q8H JANINE Administration Ceftriaxone Sodium 2 gm/ 100 mls @ 200 mls/hr 12/17/17 17:00 12/23/17 08:51 Sodium Chloride IV 200 mls/hr DAILY JANINE Administration Sodium Chloride 500 mls @ 20 mls/hr 12/22/17 01:45 12/22/17 15:32 Normal Saline 0.9% IV 20 mls/hr Q24H PRN Infusion TKO RATE TKO Loperamide HCl 2 mg 12/18/17 12:02 12/22/17 16:23 Imodium PO 2 mg QID PRN Administration Diarrhea Morphine Sulfate 2 mg 12/17/17 13:54 12/19/17 00:19 Morphine IVP 2 mg Q2H PRN Administration Pain 8 to 10 Ondansetron HCl 4 mg 12/17/17 13:54 12/22/17 16:18 Zofran Inj IVP 4 mg Q6HR PRN Administration Nausea / Vomiting Leflunomide 20 Mg 20 each 12/18/17 09:00 12/23/17 08:50 PO Not Given DAILY JANINE Losartan/Hctz 100/25 1 each 12/18/17 09:00 12/23/17 08:51 ([place] Yellow Pill PO 1 each ) DAILY JANINE Administration Naproxen 500mg ( 1 each 12/18/17 09:00 12/23/17 08:51 [place] Pill) PO 1 each DAILY JANINE Administration Levothyroxine 125mcg 1 each 12/18/17 09:00 12/23/17 08:51 ([place]iny Round [place] PO 1 each Pill) DAILY JANINE Administration Potassium Chloride 1 each 12/18/17 09:00 12/23/17 08:51 10 Meq (Large Round PO 1 each [place] Pill) DAILY JANINE Administration Polyethylene Glycol 17 gm 12/18/17 09:00 12/23/17 08:51 Miralax PO Not Given DAILY JANINE Prochlorperazine Edisylate 10 mg 12/17/17 13:54 12/17/17 21:59 Compazine Inj IVP 10 mg Q6HR PRN Administration Nausea / Vomiting Saccharomyces Boulardii 250 mg 12/17/17 23:00 12/23/17 08:51 Florastor PO 250 mg BIDWM JANINE Administration Sodium Chloride 10 ml 12/17/17 17:00 12/23/17 08:59 Normal Saline Flush 0.9% IVP 10 ml 0100,0900,1700 JANINE Administration Vitamin A/Vitamin D 1 applic 12/17/17 21:23 12/17/17 22:03 Vitamin A & D Ointment TOP 1 applic PRN PRN Administration Skin Care - Lab Result Fish Bone Diagrams: 12/22/17 05:50 12/22/17 05:50 Objective Vital Signs: Vital Signs - 24 hr 12/22/17 12/22/17 12/23/17 15:30 20:43 00:00 Temperature 36.6 C 36.9 C Heart Rate 60 Heart Rate [ 62 70 Brachial] Respiratory 18 18 18 Rate Blood Pressure 124/75 [Left Brachial artery] Blood Pressure 135/66 H [Left Radial artery] O2 Saturation 98 95 12/23/17 12/23/17 07:39 07:52 Temperature 36.5 C Heart Rate 62 Heart Rate [ 60 Brachial] Respiratory 17 18 Rate Blood Pressure 115/74 [Left Brachial artery] Blood Pressure 115/74 [Left Radial artery] O2 Saturation 96 Oxygen O2 Source Room air I&O (Last 24 Hrs): Intake and Output Totals x24h 12/21/17 12/22/17 12/23/17 23:59 23:59 23:59 Intake Total 2837 2140.333 480 Output Total 1150 Balance 2837 990.333 480 - Results Results: Laboratory Results WBC 5.2 x10^3/uL (4.8-10.8) 12/22/17 05:50 RBC 4.16 10^6/uL (4.20-5.40) L 12/22/17 05:50 Hgb 11.0 g/dL (12.0-16.0) L 12/22/17 05:50 Hct 33.2 % (37.0-47.0) L 12/22/17 05:50 MCV 79.7 fL (81.0-99.0) L 12/22/17 05:50 MCH 26.5 pg (27.0-31.0) L 12/22/17 05:50 MCHC 33.2 g/dL (32.0-36.0) 12/22/17 05:50 RDW 16.2 % (12.0-15.0) H 12/22/17 05:50 Plt Count 224 10^3/uL (130-450) 12/22/17 05:50 MPV 7.3 fL (7.9-10.8) L 12/22/17 05:50 Neut # (Auto) 3.7 10^3/uL (1.5-6.6) 12/22/17 05:50 Lymph # (Auto) 0.9 10^3/uL (1.5-3.5) L 12/22/17 05:50 [place] # (Auto) 0.5 10^3/uL (0.0-1.0) 12/22/17 05:50 Eos # (Auto) 0.2 10^3/uL (0.0-0.7) 12/22/17 05:50 Baso # (Auto) 0.0 10^3/uL (0.0-0.1) 12/22/17 05:50 Absolute Nucleated RBC 0.00 x10^3/uL 12/22/17 05:50 Nucleated RBC % 0.0 /100WBC 12/22/17 05:50 Sodium 139 mmol/L (135-145) 12/22/17 05:50 Potassium 3.8 mmol/L (3.5-5.0) 12/22/17 05:50 Chloride 104 mmol/L (101-111) 12/22/17 05:50 Carbon Dioxide 26 mmol/L (21-32) 12/22/17 05:50 Anion Gap 9.0 (6-13) 12/22/17 05:50 BUN 8 mg/dL (6-20) 12/22/17 05:50 Creatinine 0.7 mg/dL (0.4-1.0) 12/22/17 05:50 Estimated GFR (MDRD) 86 (>89) L 12/22/17 05:50 Glucose 100 mg/dL (70-100) 12/22/17 05:50 Lactic Acid 0.6 mmol/L (0.5-2.2) 12/22/17 05:50 Calcium 8.4 mg/dL (8.5-10.3) L 12/22/17 05:50 Phosphorus 3.2 mg/dL (2.5-4.6) 12/22/17 05:50 Magnesium 1.7 mg/dL (1.7-2.8) 12/22/17 05:50 Iron 51 ug/dL (28-170) 12/20/17 06:40 TIBC 220 ug/dL (250-450) L 12/20/17 06:40 % Saturation 23 % (20-50) 12/20/17 06:40 Transferrin 157 mg/dL (192-382) L 12/20/17 06:40 Ferritin 208.0 ng/mL (11.0-306.8) 12/20/17 06:40 Total Bilirubin 0.3 mg/dL (0.2-1.0) 12/22/17 05:50 AST 79 IU/L (10-42) H 12/22/17 05:50 ALT 69 IU/L (10-60) H 12/22/17 05:50 Alkaline Phosphatase 62 IU/L (42-121) 12/22/17 05:50 Total Protein 6.5 g/dL (6.7-8.2) L 12/22/17 05:50 Albumin 3.3 g/dL (3.2-5.5) 12/22/17 05:50 Globulin 3.2 g/dL (2.1-4.2) 12/22/17 05:50 Albumin/Globulin Ratio 1.0 (1.0-2.2) 12/22/17 05:50 Lipase 32 U/L (22-51) 12/17/17 11:23 Vitamin B12 531 pg/mL (180-914) 12/20/17 06:40 Folate 8.03 ng/mL (5.90 - >24.8) 12/20/17 06:40 TSH 2.53 uIU/mL (0.34-5.60) 12/18/17 05:10 Urine Color YELLOW 12/17/17 11:38 Urine Clarity CLEAR (CLEAR) 12/17/17 11:38 Urine pH 6.0 PH (5.0-7.5) 12/17/17 11:38 Ur Specific [place] <=1.005 (1.002-1.030) 12/17/17 11:38 Urine Protein NEGATIVE mg/dL (NEGATIVE) 12/17/17 11:38 Urine Glucose (UA) NEGATIVE mg/dL (NEGATIVE) 12/17/17 11:38 Urine Ketones NEGATIVE mg/dL (NEGATIVE) 12/17/17 11:38 Urine Occult Blood NEGATIVE (NEGATIVE) 12/17/17 11:38 Urine Nitrite NEGATIVE (NEGATIVE) 12/17/17 11:38 Urine Bilirubin NEGATIVE (NEGATIVE) 12/17/17 11:38 Urine Urobilinogen 0.2 (NORMAL) E.U./dL (NORMAL) 12/17/17 11:38 Ur Leukocyte Esterase NEGATIVE (NEGATIVE) 12/17/17 11:38 Ur Microscopic Review NOT INDICATED 12/17/17 11:38 Urine Culture Comments NOT INDICATED 12/17/17 11:38
--- NOTE | 2017-12-23 13:32 | PROVIDER PROGRESS NOTE ---
Assessment/Plan - Problem List (1) Perforation of sigmoid colon due to diverticulitis Assessment/Plan: Patient CT scan shows a persistent localized collection of fluid measuring 5 cm x 4.7 cm x 3.7 cm. 1 or 2 central air bubbles present without a well-defined enhancing rim. The collection appears to be intimately related to the dome of the bladder as well as adjacent to small bowel and sigmoid colon. Sigmoid diverticulitis is present on CT. Surgery was consulted and recommended IR drainage of the fluid collection as they stated a phlegmon or fluid collection over 4 cm usually does not respond to IV antibiotics. Spoke with interventional radiology at [facility] who looked at the CT scan and felt that the phlegmon was closer to 3.5 cm and that drainage at this point would be risky given the location of the fluid collection. They recommend treating with IV antibiotics till 12/23/2017 when getting a repeat CT scan. To see if fluid collection continues to persist. If it does persist then patient would go for IR guided percutaneous drainage of the fluid collection. After treating with IV ceftriaxone and Flagyl for [address] scan of the abdomen and pelvis was done on 12/22/2017 as patient seemed to be improving but CT scan shows no change in size of fluid collection therefore called IR at [facility] and spoke with Dr Brennan who looked at the new CT scan and felt that there was definite improvement and fluid collection was very small and would be very difficult to drain he asked that I speak with the General Surgeon photonics technician and get her opinion. I spoke with Dr Friedman who was the General Surgeon photonics technician at and she agreed that the diverticulitis was improving on the CT and that the fluid collection was too small to be drained. She recommended continuing treatment with IV antibiotics and no need for repeat CT as long as patient continues to be clinically stable. I also spoke with Dr Sanchez our Surgeon photonics technician here at [facility] and she agreed with both Dr Brennan and Dr Friedman that the diverticulitis was improving and that treatment with IV abx would be sufficient at this time. Patient is on an immunosuppressant called leflunamide for her RA and this maybe slowing the healing process for this diverticulitis. It takes 11 days to discontinue the medication therefore given that patient is improving we will continue her on her RA medication unless she was to worsen. We will treat for total of 14 days with IV ceftriaxone and IV flagyl today is day 7 of 14. She will continue treatment till 12/30/17. PICC line ordered Home infusion ordered and is pending insurance authorization Patient maybe able to go home tomorrow with home IV abx WBC stable, symptoms unchanged and no fevers (2) Hypertension Conclusion/Plan: BP is well controlled Will continue home medications Control pain Monitor BP and titrate meds as needed Qualifiers: Hypertension type: essential hypertension Qualified Code(s): I10 - Essential (primary) hypertension (3) Asthma Conclusion/Plan: Patient has history of asthma that has been slightly worse recently secondary to smoke outside from [employer] Patient is on albuterol prn while hospitalized and pulmicort BID Inh Incentive spirometry Stable Qualifiers: Asthma severity: mild Asthma persistence: intermittent Asthma complication type: uncomplicated Qualified Code(s): J45.20 - Mild intermittent asthma, uncomplicated (4) Hypothyroidism Conclusion/Plan: Continue home dose of synthroid TSh is 2.53 Qualifiers: Hypothyroidism type: unspecified Qualified Code(s): E03.9 - Hypothyroidism , unspecified (5) Rheumatoid arthritis Conclusion/Plan: Patient has RA and takes leflunamide and naproxyn Will continue patient on her home medications and monitor As discussed above the patients leflunamide is an immunosuppressant and maybe slowing her recovery from ongoing infection but to take her off the medication she would need 11 days of cholecystyramine treatment and given that she is improving this seems unnecessary at this time. Qualifiers: Rheumatoid arthritis location: multiple sites (6) Morbid Obesity: Conclusion/Plan: Patients BMI is 50.2 She was encouraged to lose weight. (7) Anemia: Conclusion/Plan: Iron of 51 Only mild anemia of 11.0 Stable Likely discharge tomorrow with home IV abx - Current Meds Current Meds: Current Medications Generic Name Dose Route Start Last Admin Trade Name Freq PRN Reason Stop Dose Admin Acetaminophen 650 mg 12/17/17 13:54 12/22/17 04:53 Tylenol PO 650 mg Q4HR PRN Administration Pain 1 to 4 Albuterol 2.5 mg 12/17/17 14:25 12/23/17 07:38 INH 2.5 mg RTQ4H PRN Administration Wheezing Budesonide 0.5 mg 12/17/17 15:00 12/23/17 07:38 Pulmicort INH 0.5 mg RTBID JANINE Administration Cholecalciferol 2,000 unit 12/23/17 11:00 12/23/17 11:41 Vitamin D3 PO 2,000 unit DAILY JANINE Administration Enoxaparin Sodium 40 mg 12/18/17 09:00 12/23/17 08:54 Lovenox SUBQ 40 mg DAILY JANINE Administration Famotidine 20 mg 12/18/17 09:00 12/23/17 08:51 Pepcid PO 20 mg DAILY JANINE Administration Fluticasone Propionate 2 sprays 12/18/17 09:00 12/23/17 08:55 Flonase NETO 1 spr DAILY JANINE Administration Metronidazole 500 mg in 100 mls @ 100 mls/hr 12/17/17 14:00 12/23/17 06:45 Flagyl 500 Mg/100 Ml IV 100 mls/hr Q8H JANINE Administration Ceftriaxone Sodium 2 gm/ 100 mls @ 200 mls/hr 12/17/17 17:00 12/23/17 08:51 Sodium Chloride IV 200 mls/hr DAILY JANINE Administration Sodium Chloride 500 mls @ 20 mls/hr 12/22/17 01:45 12/22/17 15:32 Normal Saline 0.9% IV 20 mls/hr Q24H PRN Infusion TKO RATE TKO Loperamide HCl 2 mg 12/18/17 12:02 12/22/17 16:23 Imodium PO 2 mg QID PRN Administration Diarrhea Morphine Sulfate 2 mg 12/17/17 13:54 12/19/17 00:19 Morphine IVP 2 mg Q2H PRN Administration Pain 8 to 10 Ondansetron HCl 4 mg 12/17/17 13:54 12/22/17 16:18 Zofran Inj IVP 4 mg Q6HR PRN Administration Nausea / Vomiting Leflunomide 20 Mg 20 each 12/18/17 09:00 12/23/17 08:50 PO Not Given DAILY JANINE Losartan/Hctz 100/25 1 each 12/18/17 09:00 12/23/17 08:51 ([place] Yellow Pill PO 1 each ) DAILY JANINE Administration Naproxen 500mg ( 1 each 12/18/17 09:00 12/23/17 08:51 [place] Pill) PO 1 each DAILY JANINE Administration Levothyroxine 125mcg 1 each 12/18/17 09:00 12/23/17 08:51 (Tiny Round [place] PO 1 each Pill) DAILY JANINE Administration Potassium Chloride 1 each 12/18/17 09:00 12/23/17 08:51 10 Meq (Large Round PO 1 each [place] Pill) DAILY JANINE Administration Polyethylene Glycol 17 gm 12/18/17 09:00 12/23/17 08:51 Miralax PO Not Given DAILY JANINE Multivit/Folic Acid/Iron 1 tab 12/23/17 11:00 12/23/17 11:41 Trinatal Rx 1 PO 1 tab DAILYWM JANINE Administration Prochlorperazine Edisylate 10 mg 12/17/17 13:54 12/17/17 21:59 Compazine Inj IVP 10 mg Q6HR PRN Administration Nausea / Vomiting Saccharomyces Boulardii 250 mg 12/17/17 23:00 12/23/17 08:51 Florastor PO 250 mg BIDWM JANINE Administration Sodium Chloride 10 ml 12/17/17 17:00 12/23/17 08:59 Normal Saline Flush 0.9% IVP 10 ml 0100,0900,1700 JANINE Administration Vitamin A/Vitamin D 1 applic 12/17/17 21:23 12/17/17 22:03 Vitamin A & D Ointment TOP 1 applic PRN PRN Administration Skin Care - Lab Result Lab results reviewed: Yes Fish Bone Diagrams: 12/22/17 05:50 12/22/17 05:50 - Diagnostic Imaging Results Diagnostic Imaging Results: Final report reviewed - Additional Planning Condition/Complexity: Improved My Orders: My Active Orders 12/23/17 10:30 PICC Line Care [RC] Q7D PICC Line Insert [RC] .ONCE 12/23/17 11:00 Cholecalciferol [Vitamin D3] 2,000 unit PO DAILY Vitamin [Trinatal Rx 1] 1 tab PO DAILYWM 12/23/17 Lunch DIET [Soft (Low Fiber) Diet] [DIET] Plan Discussed with:: Patient Time Spent: 31-60 minutes Subjective - Subjective Patient Reports: Feeling Better, Resting Comfortably, Abdominal Pain (IMproving slowly), Diarrhea (Intermittent), Nausea (Improved), Other (Patient denies any fevers or chills overnight) Nursing Reports: No Complaints Objective Vital Signs: Vital Signs - 24 hr 12/22/17 12/22/17 12/23/17 15:30 20:43 00:00 Temperature 36.6 C 36.9 C Heart Rate 60 Heart Rate [ 62 70 Brachial] Respiratory 18 18 18 Rate Blood Pressure 124/75 [Left Brachial artery] Blood Pressure 135/66 H [Left Radial artery] O2 Saturation 98 95 12/23/17 12/23/17 07:39 07:52 Temperature 36.5 C Heart Rate 62 Heart Rate [ 60 Brachial] Respiratory 17 18 Rate Blood Pressure 115/74 [Left Brachial artery] Blood Pressure 115/74 [Left Radial artery] O2 Saturation 96 Oxygen O2 Source Room air I&O (Last 24 Hrs): Intake and Output Totals x24h 12/21/17 12/22/17 12/23/17 23:59 23:59 23:59 Intake Total 2837 2140.333 880 Output Total 1150 Balance 2837 990.333 880 General: Alert, Oriented x3, Cooperative, Other (Obese) HEENT: Atraumatic, PERRLA, EOMI, Mucous membr. moist/pink Neck: Supple, No JVD, No thyromegaly, +2 carotid pulse wo bruit, No LAD Lymphatic: no adenopathy Neuro: Alert, Non Focal, CN 2-12 Grossly Intact, Oriented Times 3 Cardiovascular: Regular rate, Normal S1, Normal S2, No murmurs Respiratory: Chest non-tender, No respiratory distress, Breath sounds nml Abdomen: Normal bowel sounds, Soft, Other (Tenderness mostly suprapubic and less so in the LLQ. No peritoneal signs) Extremities: No clubbing, No cyanosis, No edema, Normal pulses Skin: No rashes, No breakdown - Results Results: Laboratory Results WBC 5.2 x10^3/uL (4.8-10.8) 12/22/17 05:50 RBC 4.16 10^6/uL (4.20-5.40) L 12/22/17 05:50 Hgb 11.0 g/dL (12.0-16.0) L 12/22/17 05:50 Hct 33.2 % (37.0-47.0) L 12/22/17 05:50 MCV 79.7 fL (81.0-99.0) L 12/22/17 05:50 MCH 26.5 pg (27.0-31.0) L 12/22/17 05:50 MCHC 33.2 g/dL (32.0-36.0) 12/22/17 05:50 RDW 16.2 % (12.0-15.0) H 12/22/17 05:50 Plt Count 224 10^3/uL (130-450) 12/22/17 05:50 MPV 7.3 fL (7.9-10.8) L 12/22/17 05:50 Neut # (Auto) 3.7 10^3/uL (1.5-6.6) 12/22/17 05:50 Lymph # (Auto) 0.9 10^3/uL (1.5-3.5) L 12/22/17 05:50 [place] # (Auto) 0.5 10^3/uL (0.0-1.0) 12/22/17 05:50 Eos # (Auto) 0.2 10^3/uL (0.0-0.7) 12/22/17 05:50 Baso # (Auto) 0.0 10^3/uL (0.0-0.1) 12/22/17 05:50 Absolute Nucleated RBC 0.00 x10^3/uL 12/22/17 05:50 Nucleated RBC % 0.0 /100WBC 12/22/17 05:50 Sodium 139 mmol/L (135-145) 12/22/17 05:50 Potassium 3.8 mmol/L (3.5-5.0) 12/22/17 05:50 Chloride 104 mmol/L (101-111) 12/22/17 05:50 Carbon Dioxide 26 mmol/L (21-32) 12/22/17 05:50 Anion Gap 9.0 (6-13) 12/22/17 05:50 BUN 8 mg/dL (6-20) 12/22/17 05:50 Creatinine 0.7 mg/dL (0.4-1.0) 12/22/17 05:50 Estimated GFR (MDRD) 86 (>89) L 12/22/17 05:50 Glucose 100 mg/dL (70-100) 12/22/17 05:50 Lactic Acid 0.6 mmol/L (0.5-2.2) 12/22/17 05:50 Calcium 8.4 mg/dL (8.5-10.3) L 12/22/17 05:50 Phosphorus 3.2 mg/dL (2.5-4.6) 12/22/17 05:50 Magnesium 1.7 mg/dL (1.7-2.8) 12/22/17 05:50 Iron 51 ug/dL (28-170) 12/20/17 06:40 TIBC 220 ug/dL (250-450) L 12/20/17 06:40 % Saturation 23 % (20-50) 12/20/17 06:40 Transferrin 157 mg/dL (192-382) L 12/20/17 06:40 Ferritin 208.0 ng/mL (11.0-306.8) 12/20/17 06:40 Total Bilirubin 0.3 mg/dL (0.2-1.0) 12/22/17 05:50 AST 79 IU/L (10-42) H 12/22/17 05:50 ALT 69 IU/L (10-60) H 12/22/17 05:50 Alkaline Phosphatase 62 IU/L (42-121) 12/22/17 05:50 Total Protein 6.5 g/dL (6.7-8.2) L 12/22/17 05:50 Albumin 3.3 g/dL (3.2-5.5) 12/22/17 05:50 Globulin 3.2 g/dL (2.1-4.2) 12/22/17 05:50 Albumin/Globulin Ratio 1.0 (1.0-2.2) 12/22/17 05:50 Lipase 32 U/L (22-51) 12/17/17 11:23 Vitamin B12 531 pg/mL (180-914) 12/20/17 06:40 Folate 8.03 ng/mL (5.90 - >24.8) 12/20/17 06:40 TSH 2.53 uIU/mL (0.34-5.60) 12/18/17 05:10 Urine Color YELLOW 12/17/17 11:38 Urine Clarity CLEAR (CLEAR) 12/17/17 11:38 Urine pH 6.0 PH (5.0-7.5) 12/17/17 11:38 Ur Specific Kyle <=1.005 (1.002-1.030) 12/17/17 11:38 Urine Protein NEGATIVE mg/dL (NEGATIVE) 12/17/17 11:38 Urine Glucose (UA) NEGATIVE mg/dL (NEGATIVE) 12/17/17 11:38 Urine Ketones NEGATIVE mg/dL (NEGATIVE) 12/17/17 11:38 Urine Occult Blood NEGATIVE (NEGATIVE) 12/17/17 11:38 Urine Nitrite NEGATIVE (NEGATIVE) 12/17/17 11:38 Urine Bilirubin NEGATIVE (NEGATIVE) 12/17/17 11:38 Urine Urobilinogen 0.2 (NORMAL) E.U./dL (NORMAL) 12/17/17 11:38 Ur Leukocyte Esterase NEGATIVE (NEGATIVE) 12/17/17 11:38 Ur Microscopic Review NOT INDICATED 12/17/17 11:38 Urine Culture Comments NOT INDICATED 12/17/17 11:38 ABX Reporting Has patient been on IV antibiotics over the past 48 hours?: Yes Current Medications - Current Medications Current Medications: Active Medications Generic Name Dose Route Start Last Admin Trade Name Freq PRN Reason Stop Dose Admin Acetaminophen 650 mg 12/17/17 13:54 12/22/17 04:53 Tylenol PO 650 mg Q4HR PRN Administration Pain 1 to 4 Albuterol 2.5 mg 12/17/17 14:25 12/23/17 07:38 INH 2.5 mg RTQ4H PRN Administration Wheezing Budesonide 0.5 mg 12/17/17 15:00 12/23/17 07:38 Pulmicort INH 0.5 mg RTBID JANINE Administration Cholecalciferol 2,000 unit 12/23/17 11:00 12/23/17 11:41 Vitamin D3 PO 2,000 unit DAILY JANINE Administration Enoxaparin Sodium 40 mg 12/18/17 09:00 12/23/17 08:54 Lovenox SUBQ 40 mg DAILY JANINE Administration Famotidine 20 mg 12/18/17 09:00 12/23/17 08:51 Pepcid PO 20 mg DAILY JANINE Administration Fluticasone Propionate 2 sprays 12/18/17 09:00 12/23/17 08:55 Flonase NETO 1 spr DAILY JANINE Administration Metronidazole 500 mg in 100 mls @ 100 mls/hr 12/17/17 14:00 12/23/17 06:45 Flagyl 500 Mg/100 Ml IV 100 mls/hr Q8H JANINE Administration Ceftriaxone Sodium 2 gm/ 100 mls @ 200 mls/hr 12/17/17 17:00 12/23/17 08:51 Sodium Chloride IV 200 mls/hr DAILY JANINE Administration Sodium Chloride 500 mls @ 20 mls/hr 12/22/17 01:45 12/22/17 15:32 Normal Saline 0.9% IV 20 mls/hr Q24H PRN Infusion TKO RATE TKO Loperamide HCl 2 mg 12/18/17 12:02 12/22/17 16:23 Imodium PO 2 mg QID PRN Administration Diarrhea Mineral Oil 1 applic 12/17/17 22:04 [place] TOP PRN PRN Skin Care Morphine Sulfate 2 mg 12/17/17 13:54 12/19/17 00:19 Morphine IVP 2 mg Q2H PRN Administration Pain 8 to 10 Ondansetron HCl 4 mg 12/17/17 13:54 12/22/17 16:18 Zofran Inj IVP 4 mg Q6HR PRN Administration Nausea / Vomiting Oxycodone HCl 5 mg 12/17/17 13:54 Roxicodone PO Q4HR PRN Pain 5 to 7 Oxycodone HCl 10 mg 12/17/17 13:54 Roxicodone PO Q4HR PRN Pain 8 to 10 Leflunomide 20 Mg 20 each 12/18/17 09:00 12/23/17 08:50 PO Not Given DAILY JANINE Losartan/Hctz 100/25 1 each 12/18/17 09:00 12/23/17 08:51 ([place] Yellow Pill PO 1 each ) DAILY JANINE Administration Naproxen 500mg ( 1 each 12/18/17 09:00 12/23/17 08:51 [place] Pill) PO 1 each DAILY JANINE Administration Levothyroxine 125mcg 1 each 12/18/17 09:00 12/23/17 08:51 (Tiny Round [place] PO 1 each Pill) DAILY JANINE Administration Potassium Chloride 1 each 12/18/17 09:00 12/23/17 08:51 10 Meq (Large Round PO 1 each [place] Pill) DAILY JANINE Administration Polyethylene Glycol 17 gm 12/18/17 09:00 12/23/17 08:51 Miralax PO Not Given DAILY JANINE Multivit/Folic Acid/Iron 1 tab 12/23/17 11:00 12/23/17 11:41 Trinatal Rx 1 PO 1 tab DAILYWM JANINE Administration Prochlorperazine Edisylate 10 mg 12/17/17 13:54 12/17/17 21:59 Compazine Inj IVP 10 mg Q6HR PRN Administration Nausea / Vomiting Promethazine HCl 25 mg 12/17/17 13:54 Phenergan Inj IM Q6HR PRN Nausea / Vomiting Saccharomyces Boulardii 250 mg 12/17/17 23:00 12/23/17 08:51 Florastor PO 250 mg BIDWM JANINE Administration Sodium Chloride 10 ml 12/17/17 13:54 Normal Saline Flush 0.9% IVP PRN PRN NEEDED PER PROVIDER ORDERS Sodium Chloride 10 ml 12/17/17 17:00 12/23/17 08:59 Normal Saline Flush 0.9% IVP 10 ml 0100,0900,1700 [facility] Administration Vitamin A/Vitamin D 1 applic 12/17/17 21:23 12/17/17 22:03 Vitamin A & D Ointment TOP 1 applic PRN PRN Administration Skin Care Zolpidem Tartrate 5 mg 12/17/17 13:54 Ambien PO QPM PRN Insomnia Albuterol Sulfate [Proventil Hfa Inhaler] 1 - 2 puffs INH Q4H PRN 12/17/17 Beclomethasone Dipropionate [Qvar Redihaler] 1 puffs IH BID 12/17/17 Fluticasone [Flonase] 2 sprays NETO DAILY 12/17/17 Leflunomide 20 mg PO DAILY 12/17/17 Levothyroxine Sodium 125 mcg PO DAILY 12/17/17 Losartan/Hydrochlorothiazide [Losartan-Hctz 100-25 mg Tab] 1 tab PO DAILY Naproxen 500 mg PO BID PRN 12/17/17
[2017-12-23] MEDS: SODIUM CHLORIDE FLUSH 0.9% 10 ML SYRINGE IVP PRN ×2 (14:05→21:45)
--- NOTE | 2017-12-23 14:08 | XRAY Report ---
Reason: new PICC @R Basilic Procedure Date: 12/23/2017 Accession Number: [id number] / [id number] Procedure: XR - Chest for Line Placement CPT Code: FULL RESULT: EXAM: CHEST RADIOGRAPHY EXAM DATE: 12/23/2017 01:54 PM. CLINICAL HISTORY: Right PICC line. COMPARISON: Chest 2 view PA/LAT 11/22/2015. TECHNIQUE: 1 view. FINDINGS: Lungs/Pleura: No focal opacities evident. No pleural effusion. No pneumothorax. Mediastinum: Within exam limitations, the cardiomediastinal contour is normal. Other: Right PICC line in place with the tip at the level of the confluence of the subclavian vein and the right internal jugular vein. Tip points slightly cephalad towards the left AC joint. IMPRESSION: 1. Right PICC line tip junction of the right internal jugular and subclavian veins. Slight cephalad orientation of the tip such that the recommended 6-8 cm advancement may favor extension into the right jugular system rather than inferiorly into the SVC. Therefore, recommended advancement with subsequent repeat chest to confirm localization prior to use. 2. Otherwise, unremarkable exam. RADIA
[2017-12-24] MEDS: SODIUM CHLORIDE FLUSH 0.9% 10 ML SYRINGE IVP SCH ×2 (00:09→08:18)
[2017-12-24] MEDS: metroNIDAZOLE 500 MG/100 ML 500 MG/100 ML BAG IV SCH ×2 (05:32→13:20)
[2017-12-24] MEDS: SODIUM CHLORIDE FLUSH 0.9% 10 ML SYRINGE IVP PRN (05:33)
[2017-12-24] MEDS: ALBUTEROL NEB 2.5 MG/3 ML INH PRN (07:35)
[2017-12-24] MEDS: BUDESONIDE 0.5 MG/2 ML NEB INH SCH (07:35)
[2017-12-24] MEDS: FAMOTIDINE 20 MG TABLET PO SCH (08:11)
[2017-12-24] MEDS: SACCHAROMYCES BOULARDII 250 MG CAPSULE PO SCH (08:11)
[2017-12-24] MEDS: CHOLECALCIFEROL 1,000 UNIT TABLET PO SCH (08:11)
[2017-12-24] MEDS: PRENATAL VITAMIN TABLET PO SCH (08:11)
[2017-12-24] MEDS: cefTRIAXone 2 GM in SODIUM CHLORIDE 0.9% MINIBAG 100 ML IV SCH (08:12)
[2017-12-24] MEDS: FLUTICASONE NASAL SPRAY NAS SCH (08:16)
[2017-12-24] MEDS: ENOXAPARIN 40 MG/0.4 ML SYRINGE SUBQ SCH (08:17)
[2017-12-24] MEDS: POLYETHYLENE GLYCOL 3350 17 GM PACKET PO SCH (08:18)
[2017-12-24] MEDS: POTASSIUM CHLORIDE 10 MEQ PO SCH (08:18)
[2017-12-24] MEDS: HCTZ PO SCH (08:19)
[2017-12-24] MEDS: LEVOTHYROXINE 125 MCG PO SCH (08:19)
[2017-12-24] MEDS: LOSARTAN PO SCH (08:19)
[2017-12-24] MEDS: NAPROXEN 500 MG PO SCH (08:19)
[2017-12-24 08:42] VITALS: BP 144/78
--- NOTE | 2017-12-24 12:28 | Discharge Plan ---
Discharge Plan Disposition: Home, Self Care Condition: Stable Prescriptions: Vitamin [Trinatal Rx 1] 1 tab PO DAILYWM #30 tablet Saccharomyces Boulardii [Florastor] 250 mg PO BID #28 capsule Diet: Soft Activity Restrictions: Activity as Tolerated Shower Restrictions: No Instruction Topics: PICC Care Dc, PICC Line Flush Home Ch Additional Instructions or Follow Up instructions: Resume all your pre-hospital medications. Home infusions of iv antibiotics have been set up for you. Take the new Florastor and Vitamin prescriptions. Stay on your soft diet til the loose stools resolve. See your PCP in followup in 1-2 weeks. If you feel worse, or get a fever, return to the ER to be seen. No Smoking: If you smoke, Please STOP! Call for help. Follow-up with: Maude Hillman PA-C [Primary Care Provider] -
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
== END 2017-12-24 14:41 | disposition home or self-care (01) | DRG 392 ==
LOC: ED 10:49 → OBS 13:54 → MS2 15:36
PROVIDERS: ADMIT Internal Medicine; ATTEND Internal Medicine
PROC: 05HM33Z Insertion of Infusion Device into Right Internal Jugular Vein, Percutaneous Approach (ICD-10-PCS; principal; 2017-12-23)
DX: K57.20 Diverticulitis of large intestine with perforation and abscess without bleeding (principal); Z68.43 Body mass index [BMI] 50.0-59.9, adult; E66.01 Morbid (severe) obesity due to excess calories; J45.909 Unspecified asthma, uncomplicated; E03.9 Hypothyroidism, unspecified; M06.9 Rheumatoid arthritis, unspecified; D64.9 Anemia, unspecified
CPT/HCPCS: 36415; 71045; 74177; 80053; 81001; 81003; 82270; 82607; 82728; 82746; 83540; 83605; 83690; 83735; 84100; 84443; 84466; 85025; 87086; 94640; 96365; 96367; 99283; 99284

== ENCOUNTER 2017-12-28 00:15 | Emergency (ER) | payer OTHER, MEDICARE ==
--- NOTE | 2017-12-28 01:13 | ED Physician Documentation ---
History of Present Illness - Stated complaint Stated Complaint: PIC LINE BLOCKED - Chief complaint Chief Complaint: General - History obtained from History obtained from: Patient - History of Present Illness Timing: Today - Additonal information Additional information: patient has PICC line for antibiotics. recently discharged from [facility], treated for diverticulitis. because of small abscess, it was decided to place PICC and have patient self-administer rocephin Q9AM and metronidazole TID (6AM, 2 PM, 10 PM). patient says she has had difficulty since d/c with PICC in that the antibiotics take twice as long to infuse as they are supposed to. tonight she was unable to infuse any of the 10 PM metronidazole dose. she tried flushing the lines, and had a friend try (friend is a nurse at ). initially, the friend was able to draw blood but could not flush the line. subsequently she was unable to either draw or flush either line and thus patient comes to ED. 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 - Present Medications Home Medications: Ambulatory Orders Medication Instructions Recorded Confirmed Albuterol Sulfate [Proventil Hfa 1 - 2 puffs INH Q4H PRN 12/17/17 12/17/17 Inhaler] Beclomethasone Dipropionate [Qvar 1 puffs IH BID 12/17/17 12/17/17 Redihaler] Fluticasone [Flonase] 2 sprays NETO DAILY 12/17/17 12/17/17 Leflunomide 20 mg PO DAILY 12/17/17 12/17/17 Levothyroxine Sodium 125 mcg PO DAILY 12/17/17 12/17/17 Losartan/Hydrochlorothiazide 1 tab PO DAILY 12/17/17 12/17/17 [Losartan-Hctz 100-25 mg Tab] Naproxen 500 mg PO BID PRN 12/17/17 12/17/17 Vitamin [Trinatal Rx 1] 1 tab PO DAILYWM #30 tablet 12/24/17 Saccharomyces Boulardii [Florastor] 250 mg PO BID #28 capsule 12/24/17 - Allergies Allergies/Adverse Reactions: Allergies Allergy/AdvReac Type Severity Reaction Status Date / Time No Known Drug Allergies Allergy Verified 12/28/17 00:24 - Social History Does the pt smoke?: No Smoking Status: Never smoker Does the pt drink ETOH?: No Does the pt have substance abuse?: No - Immunizations Immunizations are current?: Yes - POLST Patient has POLST: No POLST Status: Full Code PD ED PE NORMAL - Vitals Vital signs reviewed: Yes - General General: Alert and oriented X 3, No acute distress, Well developed/nourished - Abdomen Abdomen: Soft, Non distended, Other (mild/moderate tenderness across lower abdomen) - Extremities Extremities: Other (RUE PICC line in place with dressing, no evidence of infection (no erythema or swelling). ) Results - Vitals Vitals: Vital Signs - 24 hr 12/28/17 04:51 Heart Rate 77 Respiratory 18 Rate Blood Pressure 134/84 H O2 Saturation 97 Oxygen O2 Source Room air PD MEDICAL DECISION MAKING - ED course Complexity details: reviewed old records, reviewed results, re-evaluated patient , considered differential, d/w patient ED course: reviewed notes and previous CXR, indicates PICC tip is in region of right subclavian and right IJ with the tip pointing slightly in cephalad direction. D/W Dr. Garcia (on-call anesthesia). He recommends try to declog with tPA ( Cathflo). using 3-way stopcock technique, this was attempted twice: initially, half of the dose (1ml) was injected. after approximately 30 minutes, attempt to flush met resistance and thus second attempt made with tPA, the remainder of the vial was instilled (1 ml). subsequent attempts to draw and flush were unsuccessful. Dr. Garcia recontacted, he came to ED and was able to replace the PICC line in ED. CXR suggests appropriate position. Patient wants to go home and give next dose of antibiotic herself (rather than receive dose in ED). - Sepsis Event Vital Signs: Vital Signs - 24 hr 12/28/17 04:51 Heart Rate 77 Respiratory 18 Rate Blood Pressure 134/84 H O2 Saturation 97 Oxygen O2 Source Room air Departure - Departure Disposition: 01 Home, Self Care Clinical Impression: Occluded PICC line Qualifiers: Encounter type: initial encounter Qualified Code(s): T82.898A - Other specified complication of vascular prosthetic devices, implants and grafts, initial encounter Condition: Good Instructions: ED PICC Line Care Discharge Date/Time: 12/28/17 04:52
[2017-12-28] MEDS ORDERED: ALTEPLASE 2 MG VIAL IC STA (01:50)
[2017-12-28] MEDS ORDERED: WATER FOR INJECTION,STERILE 10 ML ONE (02:08)
[2017-12-28] MEDS ORDERED: metroNIDAZOLE 500 MG/100 ML 500 MG/100 ML BAG IV STA (04:39)
--- NOTE | 2017-12-28 04:44 | XRAY Report ---
Reason: new PICC exchange @R basilic v Procedure Date: 12/28/2017 Accession Number: [id number] / [id number] Procedure: XR - Chest for Line Placement CPT Code: FULL RESULT: EXAM: CHEST RADIOGRAPHY EXAM DATE: 12/28/2017 04:33 AM. CLINICAL HISTORY: New PICC exchange @R basilic v. COMPARISON: CHEST FOR LINE PLACEMENT 12/23/2017. TECHNIQUE: 1 view. FINDINGS: Lungs/Pleura: No focal opacities evident. No pleural effusion. No pneumothorax. Mediastinum: Within exam limitations, the cardiomediastinal contour is normal. Other: Right arm PICC terminates in the mid superior vena cava. IMPRESSION: Right arm PICC terminating in the mid superior vena cava. RADIA
[2017-12-28 04:52] VITALS: BP 134/84
== END 2017-12-28 04:52 | disposition home or self-care (01) ==
LOC: ED 00:15
DX: T82.898A Other specified complication of vascular prosthetic devices, implants and grafts, initial encounter (principal); I10 Essential (primary) hypertension
CPT/HCPCS: 36569; 99283; J2997; 71045

== ENCOUNTER 2017-12-31 16:01 | Outpatient (CLI) | payer OTHER, MEDICARE ==
[2017-12-31] MEDS ORDERED: IOPAMIDOL-300 50 ML VIAL ONE (16:06)
[2017-12-31] MEDS ORDERED: IOPAMIDOL-300 100 ML VIAL ONE (16:06)
[2017-12-31] MEDS ORDERED: IOPAMIDOL-300 50 ML VIAL PO ONE (17:36)
[2017-12-31] MEDS ORDERED: IOPAMIDOL-300 100 ML VIAL IVP ONE (17:37)
--- NOTE | 2017-12-31 18:23 | CT Report ---
Reason: DIVERTICULITIS COLON WITH PERFORATION Procedure Date: 12/31/2017 Accession Number: [id number] / [id number] Procedure: CT - Abdomen/Pelvis W/ CPT Code: FULL RESULT: EXAM: CT ABDOMEN AND PELVIS EXAM DATE: 12/31/2017 05:20 PM. CLINICAL HISTORY: Severe cramping x 6 weeks. Heavy diarrhea x 3 weeks. History of diverticulitis with perforation. COMPARISONS: CT abdomen and pelvis 12/22/2017. TECHNIQUE: Routine helical CT imaging was performed through the abdomen and pelvis. IV contrast: 50 mL isovue 300. Enteric contrast: Yes. Reconstructions: Coronal and sagittal. In accordance with CT protocol optimization, one or more of the following dose reduction techniques were utilized for this exam: automated exposure control, adjustment of mA and/or KV based on patient size, or use of iterative reconstructive technique. FINDINGS: Lung Bases: Clear. Liver: Stable hepatomegaly, with right lobe 21 cm in height. No focal lesion. Widely patent vasculature. Gallbladder/Bile Ducts: Moderately contracted gallbladder without calcified gallstone, pericholecystic infiltration or dilated bile ducts. Spleen: Mild splenomegaly at 13.4 cm in craniocaudal length, previously 12.6 cm. No focal lesion. Pancreas: Unremarkable. Adrenal Glands: No nodule. Kidneys: No hydronephrosis or focal abnormality. Horizontal lie of right kidney. Peritoneal Cavity/Bowel: No intestinal dilatation. Enteric contrast has progressed to the ileocecal junction. Normal appendix. Moderate colonic stool. Colonic diverticulosis more so of descending sigmoid junction and proximal sigmoid colon. Persistent thickening of proximal sigmoid. Persistent gas-containing pericolonic collection anteromedially in lower midline pelvis ventral to the bladder measuring approximately 5.9 x 3.8 cm (82/3), previously 4.7 x 3.6 cm. No residual extravasated contrast within. Mild thickening root of the sigmoid mesocolon. No disseminated free air or new loculated collection. No pathologically enlarged lymph nodes by size criteria. Pelvic Organs: Contracted bladder with limited detail. Hysterectomy. No adnexal mass. Vasculature: No aneurysms or other significant abnormality. Bones: No significant abnormality. IMPRESSION: 1. Chronic sigmoid diverticulitis with pericolonic phlegmon/abscess 5.9 x 3.8 cm, compared to 4.7 x 3.6 cm. The latter is inseparable from the contracted bladder. No disseminated free air, free fluid or intestinal obstruction. 2. No other focal inflammatory process. 3. Hepatosplenomegaly. RADIA
== END 2017-12-31 16:02 | disposition home or self-care (01) ==
LOC: DI 16:01
PROVIDERS: ATTEND Physician Assistant Medical
DX: K57.20 Diverticulitis of large intestine with perforation and abscess without bleeding (principal); R16.2 Hepatomegaly with splenomegaly, not elsewhere classified
CPT/HCPCS: 74177; Q9967

== ENCOUNTER 2018-03-21 11:03 | Outpatient (CLI) | payer OTHER, MEDICARE ==
[2018-03-21 18:02] LABS: BASOPHILS % (AUTO) 0.5 %; EOSINOPHILS # (AUTO) 0.2 10^3/uL (0.0-0.7); EOSINOPHILS % (AUTO) 3.5 %; HGB - HEMOGLOBIN 11.9 g/dL (12.0-16.0); LYMPHOCYTES % (AUTO) 15.6 %; MEAN CORPUSCULAR HEMOGLOBIN 25.5 pg (27.0-31.0); MEAN CORPUSCULAR HGB CONC 31.8 g/dL (32.0-36.0); MEAN CORPUSCULAR VOLUME 80.3 fL (81.0-99.0); MEAN PLATELET VOLUME 8.6 fL (7.9-10.8); MONOCYTES # (AUTO) 0.5 10^3/uL (0.0-1.0); MONOCYTES % (AUTO) 7.7 %; NEUTROPHILS # (AUTO) 4.6 10^3/uL (1.5-6.6); NEUTROPHILS % (AUTO) 72.7 %; PLT - PLATELET COUNT 231 10^3/uL (130-450); RED BLOOD COUNT 4.68 10^6/uL (4.20-5.40); RED CELL DISTRIBUTION WIDTH 17.8 % (12.0-15.0); WHITE BLOOD COUNT 6.3 x10^3/uL (4.8-10.8)
[2018-03-21 18:21] LABS: ALBUMIN 3.8 g/dL (3.2-5.5); ALBUMIN/GLOBULIN RATIO 1.1 (1.0-2.2); BILIRUBIN,TOTAL 0.6 mg/dL (0.2-1.0); CALCIUM 8.5 mg/dL (8.5-10.3); CREATININE 0.6 mg/dL (0.4-1.0); TOTAL PROTEIN 7.2 g/dL (6.7-8.2)
== END 2018-03-21 11:04 | disposition home or self-care (01) ==
LOC: LAB.WCP 11:03
PROVIDERS: ATTEND Physician Assistant Medical
DX: K57.20 Diverticulitis of large intestine with perforation and abscess without bleeding (principal)
CPT/HCPCS: 36415; 80053; 85025

== ENCOUNTER 2018-06-30 13:12 | Outpatient (CLI) | payer OTHER, MEDICARE | END 2018-06-30 13:13 | disposition home or self-care (01) | LOC: NS 13:12 | PROVIDERS: ATTEND Surgery | DX: Z71.3 Dietary counseling and surveillance (principal); E66.01 Morbid (severe) obesity due to excess calories; Z68.42 Body mass index [BMI] 45.0-49.9, adult | CPT/HCPCS: 97802 ==

== ENCOUNTER 2018-07-28 12:37 | Outpatient (CLI) | payer OTHER, MEDICARE | END 2018-07-28 12:38 | disposition home or self-care (01) | LOC: NS 12:37 | PROVIDERS: ATTEND Surgery | DX: Z71.3 Dietary counseling and surveillance (principal); E66.01 Morbid (severe) obesity due to excess calories; Z68.42 Body mass index [BMI] 45.0-49.9, adult | CPT/HCPCS: 97803 ==

== ENCOUNTER 2018-08-18 08:07 | Outpatient (CLI) | payer OTHER, MEDICARE ==
--- NOTE | 2018-08-18 09:59 | XRAY Report ---
Reason: ARM PAIN,RIGHT Procedure Date: 08/18/2018 Accession Number: [id number] / [id number] Procedure: WCP - Humerus RT CPT Code: FULL RESULT: EXAM: RIGHT HUMERUS RADIOGRAPHY EXAM DATE: 08/18/2018 08:19 AM. CLINICAL HISTORY: Chronic upper arm pain, right. No known injury. COMPARISON: None. TECHNIQUE: 2 views. FINDINGS: Bones: Normal. No fractures or bone lesions. Joints: Mild degenerative changes of the AC joint are incompletely evaluated. Soft Tissues: Normal. No soft tissue swelling. IMPRESSION: No fracture or aggressive bone lesion is detected. RADIA
== END 2018-08-18 08:08 | disposition home or self-care (01) ==
LOC: DI.WCP 08:07
PROVIDERS: ATTEND Physician Assistant Medical
DX: Z00.00 Encounter for general adult medical examination without abnormal findings (principal); M79.601 Pain in right arm; E55.9 Vitamin D deficiency, unspecified
CPT/HCPCS: 36415; 80061; 82306

== ENCOUNTER 2018-08-18 08:46 | Outpatient (CLI) | payer OTHER, MEDICARE ==
[2018-08-18 15:02] LABS: CHOL/HDL RATIO 3.3 (<4.4); CHOLESTEROL 174 mg/dL; HDL CHOLESTEROL 52 mg/dL; LDL CHOLESTEROL,CALCULATED 106 mg/dL; VLDL CHOLESTEROL 16 mg/dL
== END 2018-08-18 08:47 | disposition home or self-care (01) ==
LOC: LAB.WCP 08:46
PROVIDERS: ATTEND Physician Assistant Medical
DX: Z00.00 Encounter for general adult medical examination without abnormal findings (principal); E55.9 Vitamin D deficiency, unspecified
CPT/HCPCS: 36415; 80061; 82306; 83721

== ENCOUNTER 2018-09-01 13:00 | Outpatient (CLI) | payer OTHER, MEDICARE | END 2018-09-01 13:01 | disposition home or self-care (01) | LOC: NS 13:00 | PROVIDERS: ATTEND Surgery | DX: Z71.3 Dietary counseling and surveillance (principal); E66.01 Morbid (severe) obesity due to excess calories; Z68.42 Body mass index [BMI] 45.0-49.9, adult | CPT/HCPCS: 97803 ==

== ENCOUNTER 2018-09-29 13:28 | Outpatient (CLI) | payer OTHER, MEDICARE | END 2018-09-29 13:29 | disposition home or self-care (01) | LOC: NS 13:28 | PROVIDERS: ATTEND Surgery | DX: Z71.3 Dietary counseling and surveillance (principal); E66.01 Morbid (severe) obesity due to excess calories; Z68.42 Body mass index [BMI] 45.0-49.9, adult | CPT/HCPCS: 97803 ==

== ENCOUNTER 2019-07-23 14:04 | Outpatient (CLI) | payer OTHER, MEDICARE | END 2019-07-23 14:05 | disposition home or self-care (01) | LOC: COV 14:04 | PROVIDERS: ATTEND Family Medicine | DX: R05 Cough (principal) ==

== ENCOUNTER 2020-12-05 08:00 | Outpatient (CLI) | payer OTHER, MEDICARE ==
[2020-12-05 12:57] LABS: CHOL/HDL RATIO 2.1 (<4.4); CHOLESTEROL 191 mg/dL; CREATININE 0.7 mg/dL (0.4-1.0); GFR - MDRD 85 (>89); HDL CHOLESTEROL 92 mg/dL; LDL CHOLESTEROL,CALCULATED 85 mg/dL; LDL/HDL RATIO 0.9 (<4.4); TRIGLYCERIDES 68 mg/dL; VLDL CHOLESTEROL 14 mg/dL
[2020-12-05 13:02] LABS: THYROID STIMULATING HORMONE 3.53 uIU/mL (0.34-5.60)
== END 2020-12-05 23:59 | disposition home or self-care (01) ==
LOC: LAB.WCP 08:00
PROVIDERS: ATTEND Physician Assistant Medical
DX: Z00.00 Encounter for general adult medical examination without abnormal findings (principal); E03.9 Hypothyroidism, unspecified; D32.0 Benign neoplasm of cerebral meninges
CPT/HCPCS: 36415; 80061; 82565; 83721; 84443

== ENCOUNTER 2020-12-20 08:00 | Outpatient (CLI) | payer OTHER, MEDICARE ==
[2020-12-20 18:09] LABS: BASOPHILS % (AUTO) 0.4 %; EOSINOPHILS # (AUTO) 0.1 10^3/uL (0.0-0.7); EOSINOPHILS % (AUTO) 1.5 %; HCT - HEMATOCRIT 47.5 % (37.0-47.0); LYMPHOCYTES # (AUTO) 1.3 10^3/uL (1.5-3.5); LYMPHOCYTES % (AUTO) 27.6 %; MEAN CORPUSCULAR HGB CONC 31.6 g/dL (32.0-36.0); MEAN CORPUSCULAR VOLUME 88.6 fL (81.0-99.0); MEAN PLATELET VOLUME 11.5 fL (7.9-10.8); MONOCYTES # (AUTO) 0.4 10^3/uL (0.0-1.0); MONOCYTES % (AUTO) 8.1 %; NEUTROPHILS # (AUTO) 2.9 10^3/uL (1.5-6.6); NEUTROPHILS % (AUTO) 62.2 %; PLT - PLATELET COUNT 178 10^3/uL (130-450); RED BLOOD COUNT 5.36 10^6/uL (4.20-5.40); RED CELL DISTRIBUTION WIDTH 13.8 % (12.0-15.0); WHITE BLOOD COUNT 4.7 x10^3/uL (4.8-10.8)
[2020-12-20 18:32] LABS: ALBUMIN 4.3 g/dL (3.2-5.5); ALBUMIN/GLOBULIN RATIO 1.4 (1.0-2.2); BILIRUBIN,TOTAL 0.9 mg/dL (0.2-1.0); CALCIUM 9.1 mg/dL (8.5-10.3); CREATININE 0.6 mg/dL (0.4-1.0); MAGNESIUM 2.1 mg/dL (1.7-2.8); PHOSPHORUS 3.9 mg/dL (2.5-4.6); POTASSIUM 4.6 mmol/L (3.5-5.0); TOTAL PROTEIN 7.4 g/dL (6.7-8.2)
[2020-12-20 18:45] LABS: FERRITIN 20.5 ng/mL (11.0-306.8)
== END 2020-12-20 23:59 | disposition home or self-care (01) ==
LOC: LAB.WCP 08:00
PROVIDERS: ATTEND Physician Assistant Medical
DX: R55 Syncope and collapse (principal)
CPT/HCPCS: 36415; 80053; 82607; 82728; 83735; 84100; 85025

== ENCOUNTER 2021-02-23 08:00 | Outpatient (CLI) | payer OTHER, MEDICARE ==
[2021-02-23 18:48] LABS: THYROID STIMULATING HORMONE 2.49 uIU/mL (0.34-5.60)
== END 2021-02-23 23:59 | disposition home or self-care (01) ==
LOC: LAB.WCP 08:00
PROVIDERS: ATTEND Physician Assistant Medical
DX: E03.9 Hypothyroidism, unspecified (principal)
CPT/HCPCS: 36415; 84443

== ENCOUNTER 2022-11-26 05:48 | Outpatient (CLI) | payer OTHER, MEDICARE | END 2022-11-26 05:49 | disposition short-term general hospital (02) | LOC: EMS 05:48 | DX: R51.9 Headache, unspecified (principal); R10.814 Left lower quadrant abdominal tenderness; R50.9 Fever, unspecified; R11.2 Nausea with vomiting, unspecified | CPT/HCPCS: A0425; A0427 ==

== ENCOUNTER 2023-01-03 09:50 | Day surgery (SDC) | payer OTHER, MEDICARE ==
[~2023-01-03 09:50] MED LIST: ceFAZolin 2 GM VIAL ONE
[2023-01-03] MEDS ORDERED: LACTATED RINGERS 1,000 ML IV ONE (10:32)
--- NOTE | 2023-01-03 10:52 | ANESTHESIA ---
Pre-Anesthesia VS, & Labs - Diagnosis neck epidermal inclusion - Procedure Excision of posterior neck epidermal inclusion Vital Signs: Temp Pulse Resp BP Pulse Ox O2 Flow Rate 36.1 C L 54 L 14 131/86 H 96 01/03/23 10:05 01/03/23 10:05 01/03/23 10:05 01/03/23 10:05 01/03/23 10:05 Height: 5 ft 8 in Weight (kg): 120 kg Body Mass Index: 40.2 BMI Classification: Morbidly Obese - NPO >8 hours - Is Patient ?: No Home Medications and Allergies Home Medications: Ambulatory Orders Acetaminophen [Tylenol] 650 mg PO Q6H PRN 12/27/22 Albuterol Sulfate [Proventil Hfa Inhaler] 1 - 2 puffs INH Q4H PRN 12/17/17 Acetaminophen [Tylenol] 650 mg PO Q6H PRN 12/27/22 Enbrel 8 weeks ago Allergies/Adverse Reactions: Allergies Allergy/AdvReac Type Severity Reaction Status Date / Time No Known Drug Allergies Allergy Verified 01/02/23 13:08 Anes History & Medical History - Anesthetic History Anesthesia Complications: reports: No previous complications - Medical History Cardiovascular: reports: None Pulmonary: reports: Asthma Gastrointestinal: reports: Diverticulitis Urinary: reports: Other (kidney infection requiring IV antibotics) Neuro: reports: None Musculoskeletal: reports: Fibromyalgia, Rheumatoid arthritis Endocrine/Autoimmune: reports: Other (partial thyroidectomy) Blood Disorders: reports: None Skin: reports: None Smoking Status: Never smoker Psychosocial: reports: No issues indicated History of Cancer?: No - Surgical History General: reports: Bowel surgery, Gastric surgery, Colonoscopy Gynecologic: reports: Hysterectomy, Oophrectomy Orthopedic: reports: Rotator cuff repair Exam General: Alert, Oriented x3, Cooperative, No acute distress Dental: WNL Mouth Openin Fingerbreadth Neck Mobility: Normal Mallampati classification: II Thyromental Distance: 4-6 cm Mental/Cognitive Status: Alert/Oriented X3, Normal for patient Plan Anesthesia Type: MAC Consent for Procedure(s) Verified and Reviewed: Yes Code Status: Attempt Resuscitation ASA classification: 3-Severe systemic disease Is this case an emergency?: No
[2023-01-03] MEDS ORDERED: MIDAZOLAM 2 MG/2 ML VIAL ONE (11:10)
[2023-01-03] MEDS ORDERED: fentaNYL 100 MCG/2 ML VIAL ONE (11:10)
[2023-01-03] MEDS ORDERED: PROPOFOL 500 MG/50 ML 500 MG/50 ML VIAL ONE (11:11)
[2023-01-03] MEDS ORDERED: LIDOCAINE 1%-EPI 1:100000 20 ML MDV ONE (11:14)
[2023-01-03] MEDS ORDERED: BUPIVACAINE 0.5% PF 10 ML VIAL ONE (11:14)
[2023-01-03] MEDS ORDERED: BUPIVACAINE 0.5%-EPI 1:200000 PF 30 ML VIAL ONE (11:16)
[2023-01-03] MEDS ORDERED: LACTATED RINGERS 400 ML IV ONE (12:46)
[2023-01-03] MEDS ORDERED: HYDROcod/ACETAM 5/325 MG TABLET PO PRN (12:48)
[2023-01-03] MEDS ORDERED: BUPIVACAINE 0.5%-EPI 1:200000 PF 30 ML VIAL SUBQ ONE (12:50)
[2023-01-03] MEDS ORDERED: LIDOCAINE 1%-EPI 1:100000 20 ML MDV SUBQ ONE (12:51)
[2023-01-03 12:57] VITALS: O2SAT 100
--- NOTE | 2023-01-03 12:57 | OPERATIVE REPORT ---
Operative Report - General Procedure Date: 01/03/23 Planned Procedure: excision 2 cm posterior neck epidermal inclusion cyst 2.5 cm intermediate repair Pre-Op Diagnosis: epidermal inclusion cyst with recent inflammation Procedure Performed: same Post Op Diagnosis: same - Procedure Note Primary Surgeon: denis devries Anesthesia Technique: Local, MAC Pathology: benign. not sent Estimated Blood Loss (mL): 2 Drain/Tube Type: Other (none) Indications: eic with recent inflammation and pain Findings: as above. Complications: none - Other Other Information/Narrative: The patient was properly notified brought to the operating room and placed in right lateral decubitus position. She was carefully padded. The posterior neck cyst area was previously marked. She was prepped and draped in a sterile fashion and given preoperative antibiotics. Local anesthetic was given. An elliptical and vertically oriented 2.5 cm incision was made directly over the cyst. The cyst was not excised intact with sharp dissection. Hemostasis was assured with cautery. Intermediate repair was then performed with interrupted 3-0 Vicryl suture followed by buried interrupted subdermal 3-0 Vicryl sutures followed by additional buried interrupted 4-0 Monocryl suture. Dressing was applied. She tolerated the procedure very well was brought to recovery in good condition
[2023-01-03 13:16] VITALS: BP 120/74
--- NOTE | 2023-01-03 15:58 | ANESTHESIA POST OP EVALUATION ---
Anesthesia Post Eval - Post Anesthesia Eval Vitals: Last Vital Signs Temp 36.2 C L 01/03/23 12:56 Pulse 51 L 01/03/23 13:08 Resp 16 01/03/23 13:08 BP 120/74 01/03/23 13:08 Pulse Ox 100 01/03/23 13:08 O2 Flow Rate CV Function Including HR & BP: Stable Pain Control: Satisfactory Nausea & Vomiting: Negative Mental Status: Baseline Respiratory Status: Airway Patent Hydration Status: Satisfactory Anesthesia Complications: None
== END 2023-01-03 09:51 | disposition home or self-care (01) ==
LOC: SDS 09:50
PROVIDERS: ATTEND Surgery
DX: L72.0 Epidermal cyst (principal); J45.909 Unspecified asthma, uncomplicated; E66.01 Morbid (severe) obesity due to excess calories; Z68.41 Body mass index [BMI] 40.0-44.9, adult
CPT/HCPCS: 11422; J7120

== ENCOUNTER 2023-01-09 08:52 | Outpatient (CLI) | payer OTHER, MEDICARE ==
[2023-01-09 12:25] LABS: BASOPHILS % (AUTO) 0.2 %; EOSINOPHILS # (AUTO) 0.1 10^3/uL (0.0-0.7); EOSINOPHILS % (AUTO) 2.5 %; HCT - HEMATOCRIT 43.4 % (37.0-47.0); HGB - HEMOGLOBIN 13.9 g/dL (12.0-16.0); LYMPHOCYTES # (AUTO) 1.1 10^3/uL (1.5-3.5); LYMPHOCYTES % (AUTO) 25.3 %; MEAN CORPUSCULAR HEMOGLOBIN 27.6 pg (27.0-31.0); MEAN CORPUSCULAR VOLUME 86.1 fL (81.0-99.0); MEAN PLATELET VOLUME 10.6 fL (7.9-10.8); MONOCYTES # (AUTO) 0.3 10^3/uL (0.0-1.0); MONOCYTES % (AUTO) 7.4 %; NEUTROPHILS # (AUTO) 2.9 10^3/uL (1.5-6.6); NEUTROPHILS % (AUTO) 64.4 %; PLT - PLATELET COUNT 191 10^3/uL (130-450); RED BLOOD COUNT 5.04 10^6/uL (4.20-5.40); RED CELL DISTRIBUTION WIDTH 14.4 % (12.0-15.0); WHITE BLOOD COUNT 4.5 x10^3/uL (4.8-10.8)
[2023-01-09 12:40] LABS: ALBUMIN 3.9 g/dL (3.2-5.5); ALBUMIN/GLOBULIN RATIO 1.4 (1.0-2.2); ALKALINE PHOSPHATASE 96 IU/L (42-121); ALT ALANINE AMINOTRANSFERASE 14 IU/L (10-60); AST ASPARTATE AMINOTRANSFERASE 15 IU/L (10-42); BILIRUBIN,TOTAL 0.6 mg/dL (0.2-1.0); BUN - BLOOD UREA NITROGEN 14 mg/dL (6-20); CALCIUM 9.3 mg/dL (8.5-10.3); CARBON DIOXIDE - CO2 30 mmol/L (21-32); CHLORIDE 105 mmol/L (101-111); CHOL/HDL RATIO 2.6 (<4.4); CHOLESTEROL 192 mg/dL; CREATININE 0.7 mg/dL (0.6-1.3); GFR - MDRD 85 (>89); GLUCOSE 91 mg/dL (74-104); HDL CHOLESTEROL 74 mg/dL; LDL CHOLESTEROL,CALCULATED 98 mg/dL; LDL/HDL RATIO 1.3 (<4.4); POTASSIUM 4.2 mmol/L (3.5-4.5); SODIUM 139 mmol/L (135-145); TOTAL PROTEIN 6.7 g/dL (6.4-8.9); TRIGLYCERIDES 99 mg/dL (48-352); VLDL CHOLESTEROL 20 mg/dL
[2023-01-09 13:50] LABS: THYROID STIMULATING HORMONE 2.64 uIU/mL (0.34-5.60)
== END 2023-01-09 08:53 | disposition home or self-care (01) ==
LOC: LAB.N 08:52
PROVIDERS: ATTEND Physician Assistant Medical
DX: Z00.00 Encounter for general adult medical examination without abnormal findings (principal); E55.9 Vitamin D deficiency, unspecified; E03.9 Hypothyroidism, unspecified
CPT/HCPCS: 36415; 80053; 80061; 82306; 83721; 84443; 85025

== ENCOUNTER 2023-01-24 10:47 | Outpatient (CLI) | payer OTHER, MEDICARE ==
--- NOTE | 2023-01-24 12:15 | DEXA Report ---
PROCEDURE: Dexa Spine and/or Hip INDICATIONS: POST MENOPAUSAL TECHNIQUE: Dual energy x-ray absorptiometry (DEXA) was performed in the regions detailed below. COMPARISON: None. FINDINGS: Lumbar Spine: Bone Mineral Density 1.055 g/cm/cm,T score -1.0. Low normal Left Femoral Neck: Bone Mineral Density 0.766 g/cm/cm, T score -1.9. Osteopenia Left Hip: Bone Mineral Density 0.884 g/cm/cm,T score -1.0. Low normal (T score greater or equal to -1.0: NORMAL) (T score from -1.1 to -2.4: OSTEOPENIA) (T score less than or equal to -2.5 to: OSTEOPOROSIS) IMPRESSION: Osteopenia Patients with diagnosis of osteoporosis or osteopenia should have regular bone mineral density assess ment. For those eligible for Medicare, routine testing is allowed once every 2 years. Testing frequ ency can be increased for patients who have rapidly progressing disease or for those who are receivin g medical therapy to restore bone mass. Reviewed by: Terrance Arroyo MD on 01/24/2023 11:14 AM ROLY Approved by: Terrance Arroyo MD on 01/24/2023 11:14 AM ROLY Station ID: [id number]
== END 2023-01-24 10:48 | disposition home or self-care (01) ==
LOC: DI 10:47
PROVIDERS: ATTEND Physician Assistant Medical
DX: Z78.0 Asymptomatic menopausal state (principal); M85.88 Other specified disorders of bone density and structure, other site

== ENCOUNTER 2023-08-15 08:00 | Outpatient (CLI) | payer OTHER, MEDICARE | END 2023-08-15 23:59 | disposition home or self-care (01) | LOC: LAB.WCP 08:00 | PROVIDERS: ATTEND Physician Assistant Medical | DX: N39.0 Urinary tract infection, site not specified (principal) | CPT/HCPCS: 87077; 87086; 87181 ==

== ENCOUNTER 2023-08-28 13:56 | Outpatient (CLI) | payer OTHER, MEDICARE ==
[2023-08-28 17:43] LABS: BILIRUBIN,URINE NEGATIVE (NEGATIVE); GLUCOSE, URINE (UA) NEGATIVE (NEGATIVE); KETONES,URINE (UA) NEGATIVE (NEGATIVE); LEUKOCYTE ESTERASE, URINE NEGATIVE (NEGATIVE); NITRITE,URINE NEGATIVE (NEGATIVE); OCCULT BLOOD,URINE NEGATIVE (NEGATIVE); PH,URINE 5.5 PH (5.0-7.5); PROTEIN,URINE NEGATIVE (NEGATIVE); UROBILINOGEN,URINE 0.2 (NORMAL) E.U./dL (NORMAL)
[2023-08-28 17:49] LABS: CLARITY,URINE CLEAR (CLEAR)
[2023-08-28 18:06] LABS: BACTERIA,URINE Rare /HPF (None Seen); RBC,URINE 0-5 /HPF (0-5); SQUAMOUS EPITHELIAL CELL,UR RARE Squamous (<= Few); WBC,URINE 0-3 /HPF (0-5)
== END 2023-08-28 13:57 | disposition home or self-care (01) ==
LOC: LAB.N 13:56
PROVIDERS: ATTEND Physician Assistant Medical
DX: N39.0 Urinary tract infection, site not specified (principal)
CPT/HCPCS: 81001; 87086